=== PATIENT | male | born 2000 | race Caucasian/White ===

== ENCOUNTER 2024-04-19 15:05 | Emergency (ER) | payer OTHER, SELFPAY ==
[2024-04-19 15:06] VITALS: BP 149/99; PULSE 68; RESP 16; TEMP 35.9; O2SAT 97; BMI 42.4
--- NOTE | 2024-04-19 15:09 | EDS_ITS ---
HPI History of Present Illness Chief Complaint: Edema [facility] Medical History (Updated 04/19/24 @ 15:19 by Victoria Marshall) Hydradenitis Asthma Allergy/AdvReac Type Severity Reaction Status Date / Time No Known Allergies Allergy Verified 04/19/24 15:06 Social History Smoking Status: Current every day smoker tobacco type: smokeless tobacco EXAM Physical Exam Const Vital Signs: 04/19/24 15:06 04/19/24 15:23 Temperature 96.7 F L Temperature Source Temporal Pulse Rate 68 Respiratory Rate 16 Respiratory Effort Normal Non-Labored Respiratory Pattern Normal Blood Pressure 149/99 H Blood Pressure Mean 115 Pulse Ox 97 Oxygen Delivery Method Room Air MDM MDM MDM Narrative Medical decision making narrative: HISTORY OF PRESENT ILLNESS: 23-year-old male presents with bilateral lower extremity swelling and pain. He notes 3 weeks of lower extremity pain and swelling initially involving right ankle but over the last week it is also involved left ankle. Notes over the last 2 days she has had red dots on his lower extremities that progressed up towards his trunk. He denies fever, vomiting, diarrhea. Denies recent travel. Denies family or personal history of VTE. He denies neck stiffness headache sick contacts. 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 Denies chest pain or shortness of breath. Denies cough fever chills. Denies urinary complaints The patient denies recent surgery in the last 4 weeks or immobilization in the last 3 days, denies previous diagnosis of DVT or PE, hemoptysis, unilateral leg swelling or malignancy with treatment the last 6 months or palliative. No estrogen use noted. REVIEW OF SYSTEMS: Pertinent positives: Lower extremity swelling Pertinent negatives: Headache, neck symptoms, chest pain, shortness of PHYSICAL EXAM: Nursing triage notes reviewed, Vital signs reviewed Constitutional: please see mdm HENT: MMM Eyes: Pupils equal round and reactive to light, Extraocular muscles intact Neck: No stridor, no JVD, full neck ROM Lungs: Clear to auscultation, No wheezing or rales. No increased work of breathing, no conversational dyspnea, no accessory muscle use, no nasal flaring. No respiratory distress noted Heart: Regular rate and rhythm, No murmurs, No rubs and No gallops, 2+ distal pulses (radial, femoral, posterior tibial) in all extremities Abdomen: Soft, there is no tenderness, rigidity, rebound or guarding, no obvious peritoneal signs, no palpable pulsatile abdominal masses, no auscultated abdominal bruit : No CVAT Extremities: Trace edema noted to bilateral lower extremities, compartments are soft, no calf tenderness Neuro: No focal neurological deficits, cranial nerves II through XII intact, 5/5 strength in all extremities. Intact sensation to light touch in all extremities, 2+ reflexes bilateral patella tendons. Normal gait. No ataxia. Skin: Nonblanching, purpuric rash noted to bilateral lower extremities. No involvement of the trunk or upper extremities neck or face. MEDICAL DECISION MAKING: Chief Complaint: Leg swelling External records reviewed: Reviewed [facility] and clinic sync: X-ray of the right foot and ankle were performed on 04/13/2024. Showed no fracture or malalignment significant arthritis or other bony abnormality. Factors affecting care: ankle sprain MDM Narrative: Patient was hemodynamically stable, afebrile, nontoxic-appearing. Exam with purpuric rash on lower extremities only. I considered the following differential diagnosis: DVT, venous insufficiency, heart failure, liver failure, kidney failure, small vessel vasculitis I obtained a broad lab workup to further elucidate etiology of the patient's complaint. Specifically ruling out signs of renal abnormalities, proteinuria. The patient denies chest pain or shortness of breath, dyspnea on exertion, which makes heart failure less likely. The patient was on jaundice and not drink alcohol and has no stigmata of liver failure. 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 ALL IMAGES (IF OBTAINED) HAVE BEEN PERSONALLY REVIEWED AND INTERPRETED BY MYSELF. CBC without leukocytosis, severe anemia, no thrombocytopenia. BMP without evidence of significant electrolyte abnormalities, no anion gap, no acute kidney injury. LFTs show no evidence of hepatobiliary pathology. 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 The patient is already on prednisone and is also taking Humira secondary to hidradenitis suppurativa. This should resolve spontaneously. Will give rheumatology follow- up and strict return precautions. I did consider obtaining bilateral duplex ultrasounds however do not have also available on Sunday at 4:45 PM. I discussed giving prophylactic Lovenox and ordering outpatient DVT studies with the patient. We agreed that his risk for DVT is exceedingly low given low risk factor profile lack of calf tenderness and a more possible diagnosis of Henoch-Emiliano?nlein purpura. He decided to forego both anticoagulation and DVT studies at this time. The patient was alert and orient x 3 and had capacity to make his own medical decisions and chose to be discharged home. The patient and/or family, caregivers express understanding. The patient and/or family, caregivers agrees with the plan. Shared decision making: I will have a discussion with the patient and or visitors regarding risk/benefits of further testing or admission. They will be made aware of of the risk/benefits inherent in this decision they will be given the opportunity to voice understanding. Total critical care time today provided was at least 0 minutes. This excludes separately billable procedures. Critical care time (if documented) is secondary to the patient having high probability of clinically significant/life threatening deterioration in the patient's condition which required my urgent intervention. Impression: 1. Leg swelling 2. Arthralgias 3. 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 It may contain incorrect words, spelling, and punctuation that were not noted in review of the chart prior to signing. Lab Data Labs: Laboratory Results - last 24 hr 04/19/24 04/19/24 15:35 16:22 WBC 10.4 RBC 4.58 L Hgb 13.3 Hct 39.8 L MCV 86.9 MCH 29.0 MCHC 33.4 RDW Std Deviation 39.9 RDW Coeff of Ling 12.7 Plt Count 215 MPV 11.0 Immature Gran % (Auto) 0.300 Neut % (Auto) 45.2 L Lymph % (Auto) 43.7 H [place] % (Auto) 9.6 Eos % (Auto) 0.8 Baso % (Auto) 0.4 Absolute Neuts (auto) 4.7 Absolute Lymphs (auto) 4.53 H Nucleated RBC % 0 ESR 18 Sodium 139 Potassium 3.9 Chloride 107 Carbon Dioxide 26.0 Anion Gap 6 BUN 22 H Creatinine 1.11 Estim Creat Clear Calc 146.89 Est GFR (MDRD) Af Amer 105 Est GFR (MDRD) Non-Af 87 BUN/Creatinine Ratio 19.8 Glucose 88 Calcium 9.1 Total Bilirubin 0.50 Direct Bilirubin 0.18 AST 15 ALT 34 Alkaline Phosphatase 68 Lactate Dehydrogenase 151 C-React Prot Ext Range < 2.90 Total Protein 7.8 Albumin 3.6 Globulin 4.2 Urine Color Yellow Urine Clarity Sl. Cloudy Urine pH 6.0 Ur Specific [place] 1.020 Urine Protein 15 H Urine Glucose (UA) Normal Urine Ketones Negative Urine Occult Blood Negative Urine Nitrite Negative Urine Bilirubin Negative Urine Urobilinogen Normal Ur Leukocyte Esterase Negative Urine RBC 0 SEEN Urine WBC 0 SEEN Ur Squamous Epith Cells 0-5 SEEN Urine Bacteria RARE Urine Mucus 0 SEEN Discharge Plan Triage Chief Complaint: Edema ED Provider: Crispin Haskins Dx/Rx/DC Orders Instructions: ED Henoch-Schonlein Purpura Primary Care Provider: Care Physician,No Primary Referrals: Che Eaton MD [Med Staff - [employer]] - Activity Restrictions/Additional Instructions: Thank you for trusting us with your care today! Please take Tylenol (2 pills, 650 mg), ibuprofen (2 pills, 400 mg) every 6 hours as needed for pain and fever control. Please continue taking oral steroid as well as rate prescribed Humira. Please return to the emergency department if your symptoms change or worsen. Specifically to develop dark urine, severe pain, shortness of breath or chest pain or if you lose consciousness. Please follow with rheumatology (Dr. Eaton) For further outpatient evaluation and management. Print Language: Moldovan Disposition Disposition: Home, Self Care
[2024-04-19] MEDS: Ketorolac 15 MG/ML Vial IV (15:38)
[2024-04-19] MEDS: 0.9% Normal Saline (500mL Bag) 500 ML 999 ML IV (15:40)
[2024-04-19 15:45] LABS: Absolute Lymphocyte Count 4.53 X10^3/uL (0.83-4.51); Absolute Neutrophil Count 4.7 X10^3/uL (2.0-7.7); Basophil# 0.04 X10^3/uL; Basophil% 0.4 % (0-1); Eosinophil# 0.08 X10^3/uL; Eosinophils% 0.8 % (0-5); Hematocrit 39.8 % (40-54); Hemoglobin 13.3 g/dL (13.0-16.5); Lymphocyte # 4.53 X10^3/ul (0.83-4.51); Lymphocyte % 43.7 % (19-41); Mean Corp Hgb Conc 33.4 g/dL (32-36); Mean Corpuscular Volume 86.9 fL (80-94); Monocyte# 0.99 X10^3/uL; Monocyte% 9.6 % (0-10); NRBC Flagged by Analyzer 0 % (0-5); Neutrophil # 4.69 X10^3/uL (2.7-7.7); Neutrophil % 45.2 % (47-70); Platelet Count 215 K/mm3 (150-450); RBC Distribution Width CV 12.7 % (11.6-14.6); RBC Distribution Width SD 39.9 fl (35.1-43.9); Red Blood Count 4.58 M/mm3 (4.6-6.2); White Blood Count 10.4 K/mm3 (4.4-11.0)
[2024-04-19 15:56] LABS: Erythrocyte Sedimentation Rate 18 mm/hr (0-20)
[2024-04-19 16:10] LABS: AST(SGOT) 15 U/L (15-37); Alanine Aminotransfer ALT/SGPT 34 U/L (16-61); Albumin, Serum 3.6 g/dL (3.2-5.0); Alkaline Phosphatase 68 U/L (45-117); Anion Gap 6 (5-15); BUN 22 mg/dL (7-18); BUN/Creat Ratio 19.8 RATIO (10-20); Bilirubin, Direct 0.18 mg/dL (0.00-0.30); CRP < 2.90 mg/L (0.0-3.0); Calcium,Total 9.1 mg/dL (8.5-10.1); Chloride 107 mmol/L (98-107); Creatinine, Serum 1.11 mg/dL (0.70-1.30); EST Glomerular Filtration Rate 87 mL/min (>60); Est Glom Filt Rate - Afr Amer 105 mL/min (>60); Estimated Creatinine Clearance 146.89 ml/min; Globulin 4.2 g/dL (2.2-4.2); Glucose 88 mg/dL (74-106); LDH 151 U/L (87-241); Potassium 3.9 mmol/L (3.5-5.1); Protein, Total 7.8 g/dL (6.4-8.2); Sodium Level 139 mmol/L (136-145)
[2024-04-19 16:25] LABS: Mucous, Urine 0 SEEN /hpf (<or=2+); Red Blood Cells-Urine 0 SEEN /hpf (0-5); White Blood Cells 0 SEEN /hpf (0-5)
[2024-04-19 16:28] LABS: Color, Urine Yellow (Yellow); Glucose, Dipstick Normal (Normal); Ketone-Dipstick Negative (Negative); Leukocyte Esterase-Dipstick Negative /ul (Negative); Nitrite-Dipstick Negative (Negative); Occult Blood-Urine Negative /ul (Negative); Protein-Dipstick 15 mg/dl (Negative); Urine Bilirubin Dipstick Negative (Negative); Urine Clarity Sl. Cloudy (Clear); Urine Urobilinogen Normal (Normal)
[2024-04-19 16:38] LABS: Bacteria RARE /hpf (None Seen); Squamous Epithelial Cells - UA 0-5 SEEN /hpf (0-5)
[2024-04-19 16:53] VITALS: BP 114/63; PULSE 81; RESP 16; TEMP 36.6; O2SAT 97
[2024-04-22 05:07] LABS: Haptoglobin 229 mg/dL (17-317)
== END 2024-04-19 17:01 | disposition home or self-care (01) ==
PROVIDERS: Emergency Provider Emergency Medicine; Visit Provider Emergency Medicine
DX: M79.89 Other specified soft tissue disorders (principal); R21 Rash and other nonspecific skin eruption; F17.220 Nicotine dependence, chewing tobacco, uncomplicated
CPT/HCPCS: 80048; 80076; 81001; 83010; 83615; 85025; 85652; 86140; 96361; 96374; 99284; J7030; A4216

== ENCOUNTER → 2024-05-20 | Outpatient (CLI) | payer OTHER, SELFPAY ==
--- NOTE | 2024-05-20 14:46 | RAD_ITS ---
STUDY: X-RAY CHEST REASON FOR EXAM: Male, 23 years old. Pain. TECHNIQUE: Frontal and lateral views of the chest. COMPARISON: None. FINDINGS: The lungs are clear and expanded. There is no demonstrated pleural abnormality. Normal size heart. Normal mediastinum and barbara. Normal visualized pulmonary arteries. Normal visualized aortic arch and descending thoracic aorta. Normal visualized thoracic spine. Normal visualized ribs, clavicles, and shoulders. No abnormality of the visualized soft tissue structures of the upper abdomen. RAD/Chest PA and Lateral IMPRESSION: Normal x-ray examination of the chest. Electronically Signed: Grant Hein MD at 14:59 EDT ,
[2024-05-20 17:57] LABS: Color, Urine Yellow (Yellow); Glucose, Dipstick Normal (Normal); Ketone-Dipstick Negative (Negative); Leukocyte Esterase-Dipstick Negative /ul (Negative); Nitrite-Dipstick Negative (Negative); Occult Blood-Urine Negative /ul (Negative); Protein-Dipstick Negative (Negative); Specific Gravity, Urine 1.015 (1.002-1.030); Urine Bilirubin Dipstick Negative (Negative); Urine Clarity Clear (Clear); Urine Urobilinogen Normal (Normal)
[2024-05-20 17:58] LABS: Absolute Lymphocyte Count 2.04 X10^3/uL (0.83-4.51); Absolute Neutrophil Count 4.7 X10^3/uL (2.0-7.7); Basophil# 0.01 X10^3/uL; Basophil% 0.1 % (0-1); Eosinophil# 0.16 X10^3/uL; Eosinophils% 2.1 % (0-5); Erythrocyte Sedimentation Rate 32 mm/hr (0-20); Hemoglobin 12.6 g/dL (13.0-16.5); Lymphocyte # 2.04 X10^3/ul (0.83-4.51); Mean Corp Hgb Conc 33.2 g/dL (32-36); Mean Corpuscular Volume 87.6 fL (80-94); Mean Platelet Vol. 10.9 fl (6.2-12.0); Monocyte# 0.65 X10^3/uL; Monocyte% 8.6 % (0-10); NRBC Flagged by Analyzer 0 % (0-5); Neutrophil # 4.66 X10^3/uL (2.7-7.7); Neutrophil % 61.8 % (47-70); Platelet Count 270 K/mm3 (150-450); RBC Distribution Width CV 12.3 % (11.6-14.6); RBC Distribution Width SD 39.5 fl (35.1-43.9); Red Blood Count 4.34 M/mm3 (4.6-6.2); White Blood Count 7.6 K/mm3 (4.4-11.0)
[2024-05-20 18:19] LABS: Protein, Urine (Random) 11.2 mg/dL (<11.9); Protein:Creat Ratio 93 mg/g CRE (0-200)
[2024-05-20 18:29] LABS: ALB/GLOB Ratio 0.8 RATIO (0.9-2.4); AST(SGOT) 21 U/L (15-37); Alanine Aminotransfer ALT/SGPT 35 U/L (16-61); Albumin, Serum 3.7 g/dL (3.2-5.0); Alkaline Phosphatase 79 U/L (45-117); Anion Gap 5 (5-15); BUN 18 mg/dL (7-18); BUN/Creat Ratio 17.5 RATIO (10-20); CPK Total, Creatine Kinase 76 U/L (39-308); Calcium,Total 9.8 mg/dL (8.5-10.1); Chloride 107 mmol/L (98-107); Creatinine, Serum 1.03 mg/dL (0.70-1.30); EST Glomerular Filtration Rate 95 mL/min (>60); Est Glom Filt Rate - Afr Amer 115 mL/min (>60); Globulin 4.5 g/dL (2.2-4.2); Glucose 115 mg/dL (74-106); Potassium 3.9 mmol/L (3.5-5.1); Protein, Total 8.2 g/dL (6.4-8.2); Rheumatoid Factor < 10.0 IU/mL (<15); Sodium Level 139 mmol/L (136-145)
[2024-05-20 19:26] LABS: Hepatitis B Surface Antibody Non-Reactive; Hepatitis B Surface Antigen Non-Reactive (Nonreactive); Hepatitis C Antibody Non-Reactive (Nonreactive)
[2024-05-22 11:09] LABS: ANTINUCLEAR ANTIBODIES DIRECT Negative (Negative); Anti-Centromere B Ab <0.2 AI (0.0-0.9); Anti-Jo <0.2 AI (0.0-0.9); Anti-Scleroderma-70 AB <0.2 AI (0.0-0.9); Anti-dsDNA Ab 1 IU/mL (0-9); RNP Ab <0.2 AI (0.0-0.9); SJOGREN'S Anti-SS-A test < 0.2 AI (0.0-0.9); SJOGREN'S Anti-SS-B test < 0.2 AI (0.0-0.9); Smith Ab <0.2 AI (0.0-0.9)
[2024-05-26 13:08] LABS: Aldolase 4.4 U/L (3.3-10.3); CCP IgG Antibodies 24 units (0-19); Complement C3 182 mg/dL (82-167); Complement CH50 > 60 U/mL (>41)
== END | disposition home or self-care (01) ==
PROVIDERS: Referring Provider Internal Medicine Rheumatology; Visit Provider Internal Medicine Rheumatology
DX: R21 Rash and other nonspecific skin eruption (principal); R60.0 Localized edema; L73.2 Hidradenitis suppurativa; J45.909 Unspecified asthma, uncomplicated; R07.9 Chest pain, unspecified
CPT/HCPCS: 36415; 71046; 80053; 81002; 82085; 82550; 82570; 82595; 84156; 85025; 85652; 86038; 86140; 86160; 86162; 86200; 86225; 86235; 86431; 86706; 86803; 87340

== ENCOUNTER → 2024-06-23 | Outpatient (CLI) | payer OTHER, SELFPAY ==
[2024-06-23 12:06] LABS: Color, Urine Yellow (Yellow); Glucose, Dipstick Normal (Normal); Ketone-Dipstick Negative (Negative); Leukocyte Esterase-Dipstick Negative /ul (Negative); Nitrite-Dipstick Negative (Negative); Occult Blood-Urine Negative /ul (Negative); Protein-Dipstick 30 mg/dl (Negative); Specific Gravity, Urine 1.025 (1.002-1.030); Urine Bilirubin Dipstick Negative (Negative); Urine Clarity Clear (Clear); Urine Urobilinogen 1 mg/dl (Normal)
[2024-06-23 12:40] LABS: CRP < 2.90 mg/L (0.0-3.0); Protein:Creat Ratio 91 mg/g CRE (0-200)
[2024-06-23 12:48] LABS: Erythrocyte Sedimentation Rate 9 mm/hr (0-20)
[2024-06-25 21:07] LABS: QNTFERON TB Mitogen Value > 10.00 IU/mL (.); QNTFERON TB Nil Value 0.01 IU/mL (.); QNTFERON TB1+ Ag Value 0.02 IU/mL (.); QNTFERON TB2+ Ag Value 0.03 IU/mL (.); QNTIFERON TB Positive Criteria Negative (Negative)
== END | disposition home or self-care (01) ==
LOC: MTLAB 09:51
PROVIDERS: Referring Provider Internal Medicine Rheumatology; Visit Provider Internal Medicine Rheumatology
DX: M31.0 Hypersensitivity angiitis (principal); R60.0 Localized edema
CPT/HCPCS: 36415; 81002; 82570; 84156; 85652; 86140; 86480

== ENCOUNTER → 2024-07-08 | Outpatient (CLI) | payer OTHER, SELFPAY ==
[2024-07-08 12:20] LABS: Glucose, Dipstick Normal (Normal); Ketone-Dipstick Negative (Negative); Leukocyte Esterase-Dipstick Negative /ul (Negative); Nitrite-Dipstick Negative (Negative); Occult Blood-Urine Negative /ul (Negative); Protein-Dipstick 15 mg/dl (Negative); Urine Bilirubin Dipstick Negative (Negative); Urine Urobilinogen 1 mg/dl (Normal)
[2024-07-08 12:23] LABS: Color, Urine Yellow (Yellow); Urine Clarity Clear (Clear)
[2024-07-08 12:25] LABS: Erythrocyte Sedimentation Rate 7 mm/hr (0-20)
[2024-07-08 12:49] LABS: CRP < 2.90 mg/L (0.0-3.0)
[2024-07-08 13:31] LABS: Protein, Urine (Random) 27.2 mg/dL (<11.9); Protein:Creat Ratio 75 mg/g CRE (0-200)
== END | disposition home or self-care (01) ==
LOC: MTLAB 10:05
PROVIDERS: Referring Provider Internal Medicine Rheumatology; Visit Provider Internal Medicine Rheumatology
DX: M31.0 Hypersensitivity angiitis (principal); R60.0 Localized edema; L73.2 Hidradenitis suppurativa; J45.909 Unspecified asthma, uncomplicated
CPT/HCPCS: 36415; 81002; 82570; 84156; 85652; 86140

== ENCOUNTER → 2024-08-11 | Outpatient (CLI) | payer OTHER, SELFPAY ==
[2024-08-11 17:49] LABS: Erythrocyte Sedimentation Rate 10 mm/hr (0-20)
[2024-08-11 18:47] LABS: CRP 7.52 mg/L (0.0-3.0)
== END | disposition home or self-care (01) ==
PROVIDERS: Referring Provider Internal Medicine Rheumatology; Visit Provider Internal Medicine Rheumatology
DX: M31.0 Hypersensitivity angiitis (principal); R60.0 Localized edema
CPT/HCPCS: 36415; 85652; 86140

== ENCOUNTER → 2025-01-20 | Outpatient (CLI) | payer OTHER, SELFPAY ==
[2025-01-20 12:30] LABS: Erythrocyte Sedimentation Rate 15 mm/hr (0-20)
[2025-01-20 12:32] LABS: Absolute Lymphocyte Count 1.86 X10^3/uL (0.83-4.51); Absolute Neutrophil Count 2.6 X10^3/uL (2.0-7.7); Basophil# 0.03 X10^3/uL; Basophil% 0.5 % (0-1); Eosinophil# 0.31 X10^3/uL; Eosinophils% 5.5 % (0-5); Hematocrit 39.9 % (40-54); Hemoglobin 13.2 g/dL (13.0-16.5); Lymphocyte # 1.86 X10^3/ul (0.83-4.51); Lymphocyte % 32.9 % (19-41); Mean Corp Hgb Conc 33.1 g/dL (32-36); Mean Corpuscular Hgb 28.6 pg (27.0-32.0); Mean Corpuscular Volume 86.6 fL (80-94); Mean Platelet Vol. 11.6 fl (6.2-12.0); Monocyte# 0.83 X10^3/uL; Monocyte% 14.7 % (0-10); NRBC Flagged by Analyzer 0 % (0-5); Neutrophil # 2.62 X10^3/uL (2.7-7.7); Neutrophil % 46.4 % (47-70); Platelet Count 201 K/mm3 (150-450); RBC Distribution Width CV 12.8 % (11.6-14.6); RBC Distribution Width SD 39.8 fl (35.1-43.9); Red Blood Count 4.61 M/mm3 (4.6-6.2); White Blood Count 5.7 K/mm3 (4.4-11.0)
[2025-01-20 12:52] LABS: ALB/GLOB Ratio 1.2 RATIO (0.9-2.4); AST(SGOT) 30 U/L (<=37); Alanine Aminotransfer ALT/SGPT 33 U/L (<=46); Albumin, Serum 4.2 g/dL (3.5-5.0); Alkaline Phosphatase 86 U/L (40-129); Anion Gap 12 (5-15); BUN 14 mg/dL (4-19); BUN/Creat Ratio 14.3 RATIO (10-20); CRP 7.48 mg/L (0.0-3.0); Calcium,Total 9.7 mg/dL (7.6-11.0); Carbon Dioxide 24.8 mmol/L (21.0-32.0); Chloride 103 mmol/L (98-108); Creatinine, Serum 1.01 mg/dL (0.70-1.20); EST Glomerular Filtration Rate 107 (>60); Globulin 3.6 g/dL (2.2-4.2); Glucose 91 mg/dL (70-99); Protein, Total 7.7 g/dL (5.9-8.4); Sodium Level 139 mmol/L (133-145)
== END | disposition home or self-care (01) ==
LOC: MTLAB 09:27
PROVIDERS: Referring Provider Internal Medicine Rheumatology; Visit Provider Internal Medicine Rheumatology
DX: M31.0 Hypersensitivity angiitis (principal); R60.0 Localized edema; L73.2 Hidradenitis suppurativa; J45.909 Unspecified asthma, uncomplicated
CPT/HCPCS: 36415; 80053; 85025; 85652; 86140

== ENCOUNTER → 2025-02-19 | Outpatient (CLI) | payer OTHER, SELFPAY | END | disposition home or self-care (01) | LOC: MTLAB 10:12 | PROVIDERS: Referring Provider Dermatology; Visit Provider Dermatology | DX: L73.2 Hidradenitis suppurativa (principal) | CPT/HCPCS: 36415; 86480 ==

== ENCOUNTER → 2025-04-13 | Outpatient (CLI) | payer OTHER, SELFPAY ==
[2025-04-13 12:30] LABS: Hematocrit 37.7 % (40-54); Hemoglobin 12.1 g/dL (13.0-16.5); Immature Granulocytes Count 0.010 X10^3/uL (0.0-0.0); Mean Corp Hgb Conc 32.1 g/dL (32-36); Mean Corpuscular Volume 87.3 fL (80-94); Mean Platelet Vol. 11.9 fl (6.2-12.0); NRBC Flagged by Analyzer 0 % (0-5); Platelet Count 217 K/mm3 (150-450); RBC Distribution Width CV 12.9 % (11.6-14.6); RBC Distribution Width SD 40.8 fl (35.1-43.9); Red Blood Count 4.32 M/mm3 (4.6-6.2); White Blood Count 7.6 K/mm3 (4.4-11.0)
[2025-04-13 12:58] LABS: AST(SGOT) 17 U/L (<=37); Alanine Aminotransfer ALT/SGPT 16 U/L (<=46); Albumin, Serum 4.1 g/dL (3.5-5.0); Alkaline Phosphatase 76 U/L (40-129); Anion Gap 12 (5-15); BUN 14 mg/dL (4-19); BUN/Creat Ratio 12.4 RATIO (10-20); CRP 28.80 mg/L (0.0-3.0); Calcium,Total 9.7 mg/dL (7.6-11.0); Carbon Dioxide 24.5 mmol/L (21.0-32.0); Chloride 104 mmol/L (98-108); Globulin 3.7 g/dL (2.2-4.2); Glucose 93 mg/dL (70-99); Potassium 3.9 mmol/L (3.3-5.1)
== END | disposition home or self-care (01) ==
PROVIDERS: Referring Provider Internal Medicine Rheumatology; Visit Provider Internal Medicine Rheumatology
DX: M31.0 Hypersensitivity angiitis (principal); Z79.899 Other long term (current) drug therapy
CPT/HCPCS: 36415; 80053; 85025; 85652; 86140

== ENCOUNTER → 2025-07-13 | Outpatient (CLI) | payer OTHER, SELFPAY ==
[2025-07-13 15:03] LABS: Hematocrit 38.3 % (40-54); Hemoglobin 12.2 g/dL (13.0-16.5); Immature Granulocytes Count 0.010 X10^3/uL (0.0-0.0); Mean Corp Hgb Conc 31.9 g/dL (32-36); Mean Corpuscular Volume 86.1 fL (80-94); Mean Platelet Vol. 11.3 fl (6.2-12.0); NRBC Flagged by Analyzer 0 % (0-5); Platelet Count 243 K/mm3 (150-450); RBC Distribution Width CV 13.5 % (11.6-14.6); RBC Distribution Width SD 42.5 fl (35.1-43.9); Red Blood Count 4.45 M/mm3 (4.6-6.2); White Blood Count 7.2 K/mm3 (4.4-11.0)
[2025-07-13 15:34] LABS: AST(SGOT) 22 U/L (<=37); Alanine Aminotransfer ALT/SGPT 16 U/L (<=46); Albumin, Serum 4.3 g/dL (3.5-5.0); Alkaline Phosphatase 81 U/L (40-129); Anion Gap 11 (5-15); BUN 13 mg/dL (4-19); BUN/Creat Ratio 10.9 RATIO (10-20); CRP 9.05 mg/L (0.0-3.0); Calcium,Total 9.9 mg/dL (7.6-11.0); Carbon Dioxide 24.7 mmol/L (21.0-32.0); Chloride 103 mmol/L (98-108); Globulin 4.0 g/dL (2.2-4.2); Glucose 94 mg/dL (70-99); Potassium 4.3 mmol/L (3.3-5.1)
--- OUTSIDE RECORDS SUMMARY | 2025-07-13 16:30 | XMS RPT_ITS | CCD ---
Author Organization [facility] Care Team Providers Care New Account Interviewer Name Role Phone NO, PHYSICIAN Primary Care Unavailable ABDOULAYE PATEL Attending Unavailable NO, PHYSICIAN Primary Care Unavailable ALEJANDRINA COON Consulting Unavailab MARLA Renteria Attending Unavailable Mariano Madison MD Primary Care Provider Unavai lable Unavailable Primary Care Provider UnavailKLARISSA Aaron Attending Unavailable MARIANO MADSION Primary Care Unavailable Care Physician, No Primary Primary Care Provider Unavailable Angelito WETZEL, Dr. Bolton Attending Provider Angelito WETZEL, Dr. Bolton Referring Provider Gadiel WETZEL, Dr. Melvin Attending Provider Gadiel WETZEL, Dr. Melvin Referring Provider Care Physician, No Primary Referring Provider Un available Abilio Cole Attending Provider Care Physician, No Primary Primary Care Unava ilable Vellanmarla, Che Attending Unavailable Che Eaton Referring Unavailable Care Physician, No Primary Primary Care Unava ilable Thomlanki, Che Referring Unavailable Che Eaton Attending Unavailable Abilio Cole Attending Unavailable Care Physician, No Primary Referring Unava ilable Care Physician, No Primary Primary Care Unava ilable Care Physician, No Primary Primary Care Unava ilable Olegario Ramesh Attending Unavailable Olegario Ramesh Referring Unavailable Care Physician, No Primary Primary Care Unava ilable Vellanki, Che Referring Unavailable Che Eaton Attending Unavailable Care Physician, No Primary Primary Care Unava ilable Vellanki, Che Referring Unavailable Vellanmarla, Che Attending Unavailable Care Physician, No Primary Primary Care Unava ilable Vellanki, Che Attending Unavailable Vellanki, Che Referring Unavailable Vellanki, Che Attending Unavailable Care Physician, No Primary Primary Care Unava ilable Vellanki, Che Referring Unavailable Allergies Allergy Classification Reported Allergen(s) Allergy Type Date of Onset Reaction(s) Facility (2 sources) Contrast media; Translations: [RED DYE] Propensity to adverse reactions to drug (disorder) 1 [facility] Medications Current Medications Medication Drug Class(es) Dates Sig (Normalized) Sig (Original) 0.1 ml adalimumab 100 mg/ml prefilled syringe (1 source) Tumor Necrosis Factor Nato Humira, 2 Syringe, 10 MG/0.1ML Prefilled Syringe Kit Inject under the skin. Active Bimekizumab-Bkzx (2 sources) Start: 04-13-2025 Bimekizumab-Bkzx (Bimzelx) 160 mg/mL syringe Active 160 mg SC every 4 weeks April 13, 2025 12:00am doxycycline hyclate 150 mg oral tablet (2 sources) Tetracycline-clas s Drug Start: 04-13-2025 take 1 tablet by mouth twice daily Doxycycline Hyclate 150 mg tablet Active 150 mg PO TWICE A DAY April 13, 2025 12:00am predniSONE 20 mg oral tablet (2 sources) Start: 04-13-2024 End: 04-18-2024 take 2 tablets by mouth once daily predniSONE 20 MG tablet Take 2 tablets by mouth daily for 5 days. 10 tablet 04/13/2024 04/18/2024 Active Completed/Discontinued Medications Medication Drug Class(es) Dates Sig (Normalized) Sig (Original) acetaminophen 325 mg oral tablet (1 source) Start: 04-13-2024 End: 04-13-2024 take 1 dose by mouth once 975 mg, Oral, ONCE, 1 dose, On 04/13/24 at 1515 ibuprofen 400 mg oral tablet (1 source) Nonsteroidal Anti-inflammatory Drug Start: 04-13-2024 End: 04-13-2024 take 1 dose by mouth once at mealtime 800 mg, Oral, ONCE, 1 dose, On 04/13/24 at 1515, Give with food Problems Active Problems Problem Classification Problem Date Documented Date Episodic/Chronic Attention-deficit, conduct, and disruptive behavior disorders (1 source) Attention deficit hyperactivity disorder; Translations: [Attention-deficit hyperactivity disorder, unspecified type] 04-22-2018 Chronic Coagulation and hemorrhagic disorders (1 source) Petechiae of skin; Translations: [Spontaneous ecchymoses] 04-19-2024 Episodic Other circulatory disease (1 source) Hypersensitivity angiitis; 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 Other connective tissue disease (1 source) Pain in right foot; Translations: [Pain in right foot] 04-13-2024 Episodic Other connective tissue disease (2 sources) Pain in right foot; Translations: [Pain in right foot] Onset: 04-13-2024 Episodic Other non-traumatic joint disorders (1 source) Swollen ankle region; Translations: [Effusion, right ankle] 04-13-2024 Episodic Other non-traumatic joint disorders (2 sources) Effusion, right ankle; Translations: [Effusion, right ankle] Onset: 04-13-2024 Episodic Other skin disorders (3 sources) Hidradenitis suppurativa; Translations: [Hidradenitis suppurativa] Onset: 07-09-2023 Episodic Other upper respiratory infections (1 source) Acute pharyngitis, unspecified; Translations: [Acute pharyngitis, unspecified] Onset: 04-13-2025 Episodic Sprains and strains (3 sources) Sprain of right ankle; Translations: [Sprain of unspecified ligament of right ankle, initial encounter] Onset: 04-13-2024 04-13-2024 Episodic Past or Other Problems Problem Classification Problem Date Documented Da te Episodic/Chronic Nonspecific chest pain (2 sources) Other chest pain; Translations: [Other chest pain] Onset: 01-14-2023 Episodic Other skin disorders (1 source) Rash and other nonspecific skin eruption; Translations: [Rash and other nonspecific skin eruption] Onset: 06-11-2024 Episodic Skin and subcutaneous tissue infections (2 sources) Cutaneous abscess of chest wall; Translations: [Cutaneous abscess of chest wall] Onset: 01-14-2023 Episodic Results Test Name Value Interpretation Reference Range Facility Absolute lymphocyte countOrd ered By: Che Eaton on 04-13-2025 Lymphocytes Auto (Unsp spec) [#/Vol] 1.49 10*3/uL 0.83-4.51 [facility] Absolute neutrophil countOrd ered By: Che Eaton on 04-13-2025 Neutrophils (Bld) [#/Vol] 4.7 10*3/uL 2.0-7.7 [facility] Anion gap in Serum or Plasma Ordered By: Che Eaton on 04-13-2025 Anion gap [Moles/Vol] 12 mmol/L 5-[address] [facility] Automated lymphocyte count a s percentage of total leukocytesOrdered By: Che Eaton on 04-13-2025 Lymphocytes/100 WBC Auto (Unsp spec) 19.7 % 19-41 [facility] BUN/creatinine ratioOrdered By: Che Eaton on 04-13-2025 Urea nitrogen/Creatinine [Mass ratio] 12.4 mg/mg 10-20 [facility] Basophil percentageOrdered B y: Che Eaton on 04-13-2025 Basophils/100 WBC (Bld) 0.3 % 0-1 [facility] Bilirubin, totalOrdered By: Che Eaton on 04-13-2025 Bilirubin [Mass/Vol] 0.49 mg/dL 0.00-1.30 [facility] CBC W/Diff, Automatedon 03-27 Absolute Lymph 1.49 X10 3/uL Normal 0.83-4.51 [facility] Comment on above: Performed By: #### L 500.4050, L101.9900, L501.6710, L100.0100 #### [facility] [address] [place], [address] Absolute Neut 4.7 X10 3/uL Normal 2.0-7.7 [facility] Comment on above: Performed By: #### L 500.4050, L101.9900, L501.6710, L100.0100 #### [facility] [address] [place], [address] Basophils/100 WBC (Bld) 0.3 % Normal 0-1 [facility] Comment on above: Performed By: #### L 500.4050, L101.9900, L501.6710, L100.0100 #### [facility] [address] [place], [address] Eosinophils/100 WBC (Bld) 3.8 % Normal 0-5 [facility] Comment on above: Performed By: #### L 500.4050, L101.9900, L501.6710, L100.0100 #### [facility] [address] [place], [address] Erythrocyte distribution width (RBC) [Ratio] 12.9 % Normal 11.6-14.6 [facility] Comment on above: Performed By: #### L 500.4050, L101.9900, L501.6710, L100.0100 #### [facility] [address] [place], [address] Hematocrit (Bld) [Volume fraction] 37.7 % Low 40-54 [facility] Comment on above: Performed By: #### L 500.4050, L101.9900, L501.6710, L100.0100 #### [facility] [address] [place], [address] Hemoglobin (Bld) [Mass/Vol] 12.1 g/dL Low 13.0-16.5 [facility] Comment on above: Performed By: #### L 500.4050, L101.9900, L501.6710, L100.0100 #### [facility] [address] [place], [address] IG% 0.100 Normal 0.0-0.9 [facility] Comment on above: Result Comment: IG% - Immature Granulocytes (promyelocytes, myelocytes and metamyelocytes) > 1% indicates that a LEFT SHIFT is Present. Performed By: #### L 500.4050, L101.9900, L501.6710, L100.0100 #### [facility] [address] [place], [address] Lymphocytes/100 WBC (Bld) 19.7 % Normal 19-41 [facility] Comment on above: Performed By: #### L 500.4050, L101.9900, L501.6710, L100.0100 #### [facility] [address] [place], [address] MCH (RBC) [Entitic mass] 28.0 pg Normal 27.0-32.0 [facility] Comment on above: Performed By: #### L 500.4050, L101.9900, L501.6710, L100.0100 #### [facility] [address] [place], [address] MCHC (RBC) [Mass/Vol] 32.1 g/dL Normal 32-[address] [facility] Comment on above: Performed By: #### L 500.4050, L101.9900, L501.6710, L100.0100 #### [facility] [address] [place], [address] MCV (RBC) [Entitic vol] 87.3 fL Normal 80-94 [facility] Comment on above: Performed By: #### L 500.4050, L101.9900, L501.6710, L100.0100 #### [facility] [address] [place], [address] Monocytes/100 WBC (Bld) 13.7 % High 0-10 [facility] Comment on above: Performed By: #### L 500.4050, L101.9900, L501.6710, L100.0100 #### [facility] [address] [place], [address] Neutrophils/100 WBC (Bld) 62.4 % Normal 47-70 [facility] Comment on above: Performed By: #### L 500.4050, L101.9900, L501.6710, L100.0100 #### [facility] [address] [place], [address] Nucleated RBC (Bld) [#/Vol] 0 10*3/uL Normal 0-5 [facility] Comment on above: Performed By: #### L 500.4050, L101.9900, L501.6710, L100.0100 #### [facility] [address] [place], [address] Platelet mean volume (Bld) [Entitic vol] 11.9 fL Normal 6.2-12.0 [facility] Comment on above: Performed By: #### L 500.4050, L101.9900, L501.6710, L100.0100 #### [facility] [address] [place], [address] Platelets (Bld) [#/Vol] 217 10*3/uL Normal 150-450 [facility] Comment on above: Performed By: #### L 500.4050, L101.9900, L501.6710, L100.0100 #### [facility] [address] [place], [address] RBC (Bld) [#/Vol] 4.32 10*6/uL Low 4.6-6.2 [facility] Comment on above: Performed By: #### L 500.4050, L101.9900, L501.6710, L100.0100 #### [facility] [address] [place], [address] RDW SD 40.8 fl Normal 35.1-43.9 [facility] Comment on above: Performed By: #### L 500.4050, L101.9900, L501.6710, L100.0100 #### [facility] [address] [place], [address] WBC (Bld) [#/Vol] 7.6 10*3/uL Normal 4.4-11.0 [facility] Comment on above: Performed By: #### L 500.4050, L101.9900, L501.6710, L100.0100 #### [facility] [address] [place], [address] CRPon 04-13-2025 C-REACTIVE PROT 28.80 mg/L High 0.0-3.0 [facility] Comment on above: Performed By: #### L 500.4050, L101.9900, L501.6710, L100.0100 #### [facility] [address] [place], [address] Carbon dioxide, total [Moles /volume] in Central venous bloodOrdered By: Che Eaton on 04-13-2025 CO2 [Moles/Vol] 24.5 mmol/L 21.0-32.0 [facility] Chloride assayOrdered By: Reese Eaton on 04-13-2025 Chloride [Moles/Vol] 104 mmol/L 98-108 [facility] Comprehensive Metabolic Prof ilon 04-13-2025 Albumin [Mass/Vol] 4.1 g/dL Normal 3.5-5.0 [facility] Comment on above: Performed By: #### L 500.4050, L101.9900, L501.6710, L100.0100 #### [facility] [address] [place], [address] Albumin/Globulin [Mass ratio] 1.1 {ratio} Normal 0.9-2.4 [facility] Comment on above: Performed By: #### L 500.4050, L101.9900, L501.6710, L100.0100 #### [facility] [address] [place], [address] ALK PHOS 76 U/L Normal 40-129 [facility] Comment on above: Performed By: #### L 500.4050, L101.9900, L501.6710, L100.0100 #### [facility] [address] [place], [address] ALT [Catalytic activity/Vol] 16 U/L Normal <=46 [facility] Comment on above: Performed By: #### L 500.4050, L101.9900, L501.6710, L100.0100 #### [facility] [address] [place], [address] AST [Catalytic activity/Vol] 17 U/L Normal <=37 [facility] Comment on above: Performed By: #### L 500.4050, L101.9900, L501.6710, L100.0100 #### [facility] [address] [place], [address] Bilirubin [Mass/Vol] 0.49 mg/dL Normal 0.00-1.30 [facility] Comment on above: Performed By: #### L 500.4050, L101.9900, L501.6710, L100.0100 #### [facility] [address] [place], [address] BUN/CRE 12.4 RATIO Normal 10-20 [facility] Comment on above: Performed By: #### L 500.4050, L101.9900, L501.6710, L100.0100 #### [facility] [address] [place], [address] Calcium [Mass/Vol] 9.7 mg/dL Normal 7.6-11.0 [facility] Comment on above: Performed By: #### L 500.4050, L101.9900, L501.6710, L100.0100 #### [facility] [address] [place], [address] Chloride [Moles/Vol] 104 mmol/L Normal 98-108 [facility] Comment on above: Performed By: #### L 500.4050, L101.9900, L501.6710, L100.0100 #### [facility] [address] [place], [address] CO2 [Moles/Vol] 24.5 mmol/L Normal 21.0-32.0 [facility] Comment on above: Performed By: #### L 500.4050, L101.9900, L501.6710, L100.0100 #### [facility] [address] [place], [address] Creatinine [Mass/Vol] 1.09 mg/dL Normal 0.70-1.[address] [facility] Comment on above: Performed By: #### L 500.4050, L101.9900, L501.6710, L100.0100 #### [facility] [address] [place], [address] GAP 12 Normal 5-15 [facility] Comment on above: Performed By: #### L 500.4050, L101.9900, L501.6710, L100.0100 #### [facility] [address] [place], [address] GFR/1.73 sq M.predicted among non-blacks MDRD (S/P/Bld) [Vol rate/Area] 97 mL/min/{1.73_m2} Normal >60 [facility] Comment on above: Result Comment: mL/m in/1.73m2 CKD-EPI Creatinine Equation (2020) Performed By: #### L 500.4050, L101.9900, L501.6710, L100.0100 #### [facility] [address] [place], [address] Globulin (S) [Mass/Vol] 3.7 g/dL Normal 2.2-4.2 [facility] Comment on above: Performed By: #### L 500.4050, L101.9900, L501.6710, L100.0100 #### [facility] [address] [place], [address] Glucose [Mass/Vol] 93 mg/dL Normal 70-99 [facility] Comment on above: Performed By: #### L 500.4050, L101.9900, L501.6710, L100.0100 #### [facility] [address] [place], [address] Potassium [Moles/Vol] 3.9 mmol/L Normal 3.3-5.[address] [facility] Comment on above: Performed By: #### L 500.4050, L101.9900, L501.6710, L100.0100 #### [facility] [address] [place], [address] Sodium [Moles/Vol] 140 mmol/L Normal 133-145 [facility] Comment on above: Performed By: #### L 500.4050, L101.9900, L501.6710, L100.0100 #### [facility] [address] [place], [address] T PROT 7.7 g/dL Normal 5.9-8.4 [facility] Comment on above: Performed By: #### L 500.4050, L101.9900, L501.6710, L100.0100 #### [facility] [address] [place], [address] Urea nitrogen [Mass/Vol] 14 mg/dL Normal 4-19 [facility] Comment on above: Performed By: #### L 500.4050, L101.9900, L501.6710, L100.0100 #### [facility] [address] [place], [address] Eosinophil percentageOrdered By: Che Eaton on 04-13-2025 Eosinophils/100 WBC (Bld) 3.8 % 0-5 [facility] Erythrocyte Sed Rateon 04-13 SED RATE 23 mm/hr High 0-20 [facility] Comment on above: Performed By: #### L 500.4050, L101.9900, L501.6710, L100.0100 #### [facility] [address] [place], [address] Erythrocyte distribution wid th ratioOrdered By: Che Eaton on 04-13-2025 Erythrocyte distribution width (RBC) [Ratio] 12.9 % 11.6-14.6 [facility] Erythrocyte distribution wid th standard deviationOrdered By: Che Eaton on 04-13-2025 Erythrocyte distribution width (RBC) [Ratio] 40.8 fl 35.1-43.9 [facility] Erythrocyte sedimentation ra teOrdered By: Che Eaton on 04-13-2025 ESR (Bld) [Velocity] 23 mm/h High 0-20 [facility] Glomerular filtration rate ( GFR) estimation/1.73 sq m using serum, plasma, or whole bOrdered By: Che Eaton on 04-13-2025 GFR/1.73 sq M.predicted among non-blacks MDRD (S/P/Bld) [Vol rate/Area] 97 mL/min/{1.73_m2} >60 [facility] Comment on above: mL/min/1.73m2 CKD-EP I Creatinine Equation (2020) Hematocrit Auto (Bld) [Volum e fraction]Ordered By: Che Eaton on 04-13-2025 Hematocrit (Bld) [Volume fraction] 37.7 % Low 40-54 [facility] Hemoglobin measurementOrdere d By: Che Eaton on 04-13-2025 Hemoglobin (Bld) [Mass/Vol] 12.1 g/dL Low 13.0-16.5 [facility] Immature granulocytes/100 WB C Auto (Bld)Ordered By: Che Eaton on 04-13-2025 Immature granulocytes/100 WBC (Bld) 0.100 % 0.0-0.9 [facility] Comment on above: IG% - Immature Granu locytes (promyelocytes, myelocytes and metamyelocytes) > 1% indicates that a LEFT SHIFT is Present. Laboratory - Chemistry and C hemistry - challengeOrdered By: Che Eaton on 04-13-2025 AST [Catalytic activity/Vol] 17 U/L <38 [facility] MCV (mean corpuscular volume ) determinationOrdered By: Che Eaton 5 MCV (RBC) [Entitic vol] 87.3 fL 80-94 [facility] Mean corpuscular hemoglobin (MCH) determinationOrdered By: Che Eaton on 04-13-2025 MCH (RBC) [Entitic mass] 28.0 pg 27.0-32.0 [facility] Mean corpuscular hemoglobin concentration (MCHC) determinationOrdered By: Che Eaton on 04-13-2025 MCHC (RBC) [Mass/Vol] 32.1 g/dL 32-[address] [facility] Mean platelet volume determi nationOrdered By: Che Eaton on 04-13-2025 Platelet mean volume (Bld) [Entitic vol] 11.9 fL 6.2-12.0 [facility] Monocyte percentageOrdered B y: Che Eaton on 04-13-2025 Monocytes/100 WBC (Bld) 13.7 % High 0-10 [facility] Neutrophil percentageOrdered By: Che Eaton on 04-13-2025 Neutrophils/100 WBC (Bld) 62.4 % 47-70 [facility] Nucleated red blood cell per centageOrdered By: Che Eaton on 04-13-2025 Nucleated RBC/100 WBC (Bld) [Ratio] 0 % 0-5 [facility] Platelet countOrdered By: Reese Eaton on 04-13-2025 Platelets (Bld) [#/Vol] 217 10*3/uL 150-450 [facility] Potassium measurement (mass/ volume)Ordered By: Che Eaton on 04-13-2025 Potassium (Unsp spec) [Mass/Vol] 3.9 mmol/L 3.3-5.1 [facility] RBC Auto (Bld) [#/Vol]Ordere d By: Che Eaton on 04-13-2025 RBC (Bld) [#/Vol] 4.32 10*6/uL Low 4.6-6.2 [facility] Rapid group A Streptococcus antigen assay at point of careOrdered By: Abilio Chairez on 04-13-2025 S. pyogenes Ag IA.rapid Ql (Throat) Negative [facility] Serum creatinine measurement (mass/volume)Ordered By: Che Eaton on 04-13-2025 Creatinine [Mass/Vol] 1.09 mg/dL 0.70-1.[address] [facility] Serum globulin measurementOr dered By: Che Eaton on 04-13-2025 Globulin (S) [Mass/Vol] 3.7 g/dL 2.2-4.2 [facility] Serum glucose measurement (m ass/volume)Ordered By: Che Eaton on 04-13-2025 Glucose [Mass/Vol] 93 mg/dL 70-99 [facility] Serum or plasma C reactive p rotein measurement (mass/volume)Ordered By: Che Eaton on 04-13-2025 CRP [Mass/Vol] 28.80 mg/L High 0.0-3.0 [facility] Serum or plasma alanine larios otransferase (ALT) measurementOrdered By: Che Eaton on 04-13-2025 ALT [Catalytic activity/Vol] 16 U/L <47 [facility] Serum or plasma albumin katie urement (mass/volume)Ordered By: Che Eaton on 04-13-2025 Albumin [Mass/Vol] 4.1 g/dL 3.5-5.0 [facility] Serum or plasma albumin/glob ulin mass ratioOrdered By: Che Eaton on 04-13-2025 Albumin/Globulin [Mass ratio] 1.1 {ratio} 0.9-2.4 [facility] Serum or plasma alkaline althea sphatase measurementOrdered By: Che Eaton on 04-13-2025 ALP [Catalytic activity/Vol] 76 U/L 40-129 [facility] Serum or plasma calcium katie urement (mass/volume)Ordered By: Che Eaton on 04-13-2025 Calcium [Mass/Vol] 9.7 mg/dL 7.6-11.0 [facility] Serum or plasma urea nitroge n measurement (mass/volume)Ordered By: Che Eaton on 04-13-2025 Urea nitrogen [Mass/Vol] 14 mg/dL 4-19 [facility] Sodium levelOrdered By: Redd Eaton on 04-13-2025 Sodium [Moles/Vol] 140 mmol/L 133-145 [facility] Total proteinOrdered By: Caprice Eaton on 04-13-2025 Protein [Mass/Vol] 7.7 g/dL 5.9-8.4 [facility] Urgent Care Visit Reporton 0 04-13-2025 Urgent Care Visit Report [facility] [address] , [address] [place] [address] OFFICE VISIT Date of Service: 04/13/25 MR#: [id number] Acct: [id number] Name: JINNY COLLINS Rep #: [id number] : 2000 Provider: REESE Arias Age/Sex: 24/M Location: [facility] Status: Signed with Addenda ADDENDUM by REESE Arias on 04/13/25 at 1042 HPI Details: REVISED DX: Acute pharyngitis J02.9 * Assessment and Plan Assessment and Plan Orders: Orders POC Miranda Rapid Strep A Today J02.9 - Acute pharyngitis, unspecified 04/13/25 1042 Date Abilio Chairez cc: * Signed Intake Vital Signs 04/19/24 15:06 04/13/25 09:50 Height 5 ft 11 in 5 ft 11 in Weight: 285 lb BMI 39.7 BP 130/80 H Blood Pressure Location Lt brachial Position Sitting Pulse 84 Pulse Source Monitor Temp 98.6 F Temp Source Oral Pulse Oximetry (%) 98 Oxygen Delivery Method room air Intake Visit Reasons: SORE THROAT Chief Complaint: Sore Throat Accompanied by: Self Allergies No Known Allergies Allergy (Verified 04/13/25 09:48) Medications ???Medication ???Instructions ???Recorded ???Confirmed ???Type bimekizumab-bkzx 160 mg/mL 160 mg subcut Q4W 08/18/25 08/18/2 5 History subcutaneous syringe (Bimzelx) doxycycline hyclate 150 mg tablet 150 mg PO BID 04/13/25 04/13/25 H istory Nurse's Note: Sore throat, hard to swallow, left tonsil feels very swollen. X 2 days. [facility] Medical History (Updated 04/19/24 @ 15:19 by Victoria Marshall) Hydradenitis Asthma Social History Smoking Status: Current every day smoker tobacco type: smokeless tobacco HPI HPI Chief Complaint: Sore Throat Details: JINNY COLLINS, is a 24 M who presents to the office today for initial evaluation at the [facility] for approximately 2-day history of progressively worsening sore throat with swollen tender cervical lymph nodes in front of neck (L>R), no cough, no fever. Painful swallowing appreciated though no difficulty swallowing/drooling. No rash. No complaints of chest pressure/shortness of breath/dyspnea on exertion. 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 ???No rixb-chk-yiknsip products taken to assist. No other associated symptoms and no other alleviating/aggravating factors. ROS Const Constitutional: No other (As above) Exam Const General: cooperative, healthy appearing and no acute distress Orientation: alert, awake and oriented x3 HENMT Head: normal to inspection Ears: hearing grossly normal bilaterally, external ears normal, TM's normal bilaterally and EAC's normal Nose: external nose normal, nares normal, septum normal and no nasal discharge Face and sinus: normal facial exam, sinuses nontender and face symmetric Mouth: oral mucosae normal, lip normal, tongue normal and oropharynx normal Throat: posterior oropharynx normal, uvula midline, abnormal tonsil bilaterally erythema w/ exudates and +1 hypertrophy, and no postnasal drainage Eyes General: appearance normal, both eyes and all related structures Neck Neck: normal visual inspection, full ROM, no meningeal signs, supple and lymphadenopathy (Bilateral anterior cervical lymph node swelling/nontender to palpation) Neck mass: No Thyroid: thyroid normal Chest Chest palpation inspection: normal inspection of the chest Resp Effort Inspection: normal respiratory effort and able to speak in complete sentences Auscultation: Bilateral: Clear to Auscultation Cardio Palpation: normal PMI Rate: regular rate Rhythm: regular rhythm Heart Sounds: S1 normal, S2 normal, no gallops, no murmurs and no rubs Pulses: radial pulses present Skin General: no rashes or lesions noted Neuro General: patient alert, patient awake and patient oriented x3 Cognition: normal cognition Speech: speech normal Psych Appearance: grossly normal Mental Status: mental status grossly normal Mood: congruent mood Affect: normal affect Speech and Movement: speech and movement normal Attitude: cooperative Diagnoses Acute streptococcal pharyngitis J02.0 Assessment and Plan Assessment and Plan (1) Acute streptococcal pharyngitis: Status: Acute Plan: See POC results for streptococcal pharyngitis and Monospot test (both negative). Supportive measures as instructed today. Work excuse offered/declined. Follow-up with PCP in 5-7 days should symptoms not improve, ED sooner should symptoms worsen or any other concerns develop. Patient states acknowledging understanding all the above. Results POC Miranda Rapid Strep POC Miranda Rapid Strep Negative Last Edit by Liseth Rdz MA on 04/13/25 10:11 Coding Level of Ca (more content not included)... Normal [facility] White blood cell (WBC) count Ordered By: Che Eaton on 04-13-2025 WBC (Bld) [#/Vol] 7.6 10*3/uL 4.4-11.0 [facility] Quantiferon TB-Gold+on 03-02 QFT MITOGEN DANIELE > 10.00 Normal . [facility] Comment on above: Order Comment: CLEAN CATCH Performed By: #### L 501.6710, L501.0900, L3400.8000, L400.2010, L101.9900 #### [facility] [address] [place], [address] QFT NIL VALUE 0.01 IU/mL Normal . [facility] Comment on above: Order Comment: CLEAN CATCH Performed By: #### L 501.6710, L501.0900, L3400.8000, L400.2010, L101.9900 #### [facility] [address] [place], [address] QFT TB GOLD+ Comment Normal . [facility] Comment on above: Order Comment: CLEAN CATCH Result Comment: Sandip tiFERON-TB Gold Plus is a qualitative indirect test for M tuberculosis infection (including disease) and is intended for use in conjunction with risk assessment, radiography, and other medical and diagnostic evaluations. The QuantiFERON-TB Gold Plus result is determined by subtracting the Nil value from either TB antigen (Ag) value. The Mitogen tube serves as a control for the test. Performed By: #### L 501.6710, L501.0900, L3400.8000, L400.2010, L101.9900 #### [facility] [address] [place], [place], [id number] QFT TB POS CRIT Negative Normal Negative [facility] Comment on above: Order Comment: CLEAN CATCH Result Comment: No r esponse to M tuberculosis antigens detected. Infection with M tuberculosis is unlikely, but high risk individuals should be considered for additional testing (ATS/IDSA/CDC Clinical Practice Guidelines, 2017). The reference range is an Antigen minus Nil result of <0.35 IU/mL. The specimen received for QuantiFERON testing was incubated by the ordering institution. Specific procedures outlined in our Directory of Services and in the package insert for the QuantiFERON Gold (In Tube) test must be followed to enable for proper stimulation of cells for the production of interferon gamma. Chemiluminescence immunoassay methodology Performed at: [email or web address] [id number] Middleware Systems Architect: Eric Stover PhD, Phone: [phone] Performed By: #### L 501.6710, L501.0900, L3400.8000, L400.2010, L101.9900 #### [facility] [address] [place], [place], [id number] QFT TB1+ AG DANIELE 0.03 IU/mL Normal . [facility] Comment on above: Order Comment: CLEAN CATCH Performed By: #### L 501.6710, L501.0900, L3400.8000, L400.2010, L101.9900 #### [facility] [address] [place], [place], [address] QFT TB2+ AG DANIELE 0.02 IU/mL Normal . [facility] Comment on above: Order Comment: CLEAN CATCH Performed By: #### L 501.6710, L501.0900, L3400.8000, L400.2011, L101.9900 #### [facility] [address] [place], [address] Qualitative QuantiFERON-TB g old in tube testOrdered By: Olegario Ramesh on 02-19-2025 M. tuberculosis tuberculin stim IFN-g Ql (Bld) 0.03 IU/mL . [facility] Absolute lymphocyte countOrd ered By: Checrystal Eaton on 01-20-2025 Lymphocytes Auto (Unsp spec) [#/Vol] 1.86 10*3/uL 0.83-4.51 [facility] Absolute neutrophil countOrd ered By: [facility] on 01-20-2025 Neutrophils (Bld) [#/Vol] 2.6 10*3/uL 2.0-7.7 [facility] Anion gap in Serum or Plasma Ordered By: Che Eaton on 01-20-2025 Anion gap [Moles/Vol] 12 mmol/L 5- [facility] Automated lymphocyte count a s percentage of total leukocytesOrdered By: [facility] Angelito on 01-20-2025 Lymphocytes/100 WBC Auto (Unsp spec) 32.9 % - [facility] BUN/creatinine ratioOrdered By: [facility] on 01-20-2025 Urea nitrogen/Creatinine [Mass ratio] 14.3 mg/mg 10-20 [facility] Basophil percentageOrdered B y: Che Eaton on 01-20-2025 Basophils/100 WBC (Bld) 0.5 % 0-1 [facility] Bilirubin, totalOrdered By: [facility] Angelito on 01-20-2025 Bilirubin [Mass/Vol] 0.40 mg/dL 0.00-1.30 [facility] CBC W/Diff, Automatedon 12-26 Absolute Lymph 1.86 X10 3/uL Normal 0.83-4.51 [facility] Comment on above: Performed By: #### L 500.4050, L101.9900, L501.6710, L100.0100 #### [facility] [address] [place], [address] Absolute Neut 2.6 X10 3/uL Normal 2.0-7.7 [facility] Comment on above: Performed By: #### L 500.4050, L101.9900, L501.6710, L100.0100 #### [facility] [address] [place], [address] Basophils/100 WBC (Bld) 0.5 % Normal 0-1 [facility] Comment on above: Performed By: #### L 500.4050, L101.9900, L501.6710, L100.0100 #### [facility] [address] [place], [address] Eosinophils/100 WBC (Bld) 5.5 % High 0-5 [facility] Comment on above: Performed By: #### L 500.4050, L101.9900, L501.6710, L100.0100 #### [facility] [address] [place], [address] Erythrocyte distribution width (RBC) [Ratio] 12.8 % Normal 11.6-14.6 [facility] Comment on above: Performed By: #### L 500.4050, L101.9900, L501.6710, L100.0100 #### [facility] [address] [place], [address] Hematocrit (Bld) [Volume fraction] 39.9 % Low 40-54 [facility] Comment on above: Performed By: #### L 500.4050, L101.9900, L501.6710, L100.0100 #### [facility] [address] [place], [address] Hemoglobin (Bld) [Mass/Vol] 13.2 g/dL Normal 13.0-16.5 [facility] Comment on above: Performed By: #### L 500.4050, L101.9900, L501.6710, L100.0100 #### [facility] [address] [place], [address] IG% 0.000 Normal 0.0-0.9 [facility] Comment on above: Result Comment: IG% - Immature Granulocytes (promyelocytes, myelocytes and metamyelocytes) > 1% indicates that a LEFT SHIFT is Present. Performed By: #### L 500.4050, L101.9900, L501.6710, L100.0100 #### [facility] [address] [place], [address] Lymphocytes/100 WBC (Bld) 32.9 % Normal 19-41 [facility] Comment on above: Performed By: #### L 500.4050, L101.9900, L501.6710, L100.0100 #### [facility] [address] [place], [address] MCH (RBC) [Entitic mass] 28.6 pg Normal 27.0-32.0 [facility] Comment on above: Performed By: #### L 500.4050, L101.9900, L501.6710, L100.0100 #### [facility] [address] [place], [address] MCHC (RBC) [Mass/Vol] 33.1 g/dL Normal 32-[address] [facility] Comment on above: Performed By: #### L 500.4050, L101.9900, L501.6710, L100.0100 #### [facility] [address] [place], [address] MCV (RBC) [Entitic vol] 86.6 fL Normal 80-94 [facility] Comment on above: Performed By: #### L 500.4050, L101.9900, L501.6710, L100.0100 #### [facility] [address] [place], [address] Monocytes/100 WBC (Bld) 14.7 % High 0-10 [facility] Comment on above: Performed By: #### L 500.4050, L101.9900, L501.6710, L100.0100 #### [facility] [address] [place], [address] Neutrophils/100 WBC (Bld) 46.4 % Low 47-70 [facility] Comment on above: Performed By: #### L 500.4050, L101.9900, L501.6710, L100.0100 #### [facility] [address] [place], [address] Nucleated RBC (Bld) [#/Vol] 0 10*3/uL Normal 0-5 [facility] Comment on above: Performed By: #### L 500.4050, L101.9900, L501.6710, L100.0100 #### [facility] [address] [place], [address] Platelet mean volume (Bld) [Entitic vol] 11.6 fL Normal 6.2-12.0 [facility] Comment on above: Performed By: #### L 500.4050, L101.9900, L501.6710, L100.0100 #### [facility] [address] [place], [address] Platelets (Bld) [#/Vol] 201 10*3/uL Normal 150-450 [facility] Comment on above: Performed By: #### L 500.4050, L101.9900, L501.6710, L100.0100 #### [facility] [address] [place], [address] RBC (Bld) [#/Vol] 4.61 10*6/uL Normal 4.6-6.2 [facility] Comment on above: Performed By: #### L 500.4050, L101.9900, L501.6710, L100.0100 #### [facility] [address] [place], [address] RDW SD 39.8 fl Normal 35.1-43.9 [facility] Comment on above: Performed By: #### L 500.4050, L101.9900, L501.6710, L100.0100 #### [facility] [address] [place], [address] WBC (Bld) [#/Vol] 5.7 10*3/uL Normal 4.4-11.0 [facility] Comment on above: Performed By: #### L 500.4050, L101.9900, L501.6710, L100.0100 #### [facility] [address] [place], [address] CRPon 01-20-2025 C-REACTIVE PROT 7.48 mg/L High 0.0-3.0 [facility] Comment on above: Performed By: #### L 500.4050, L101.9900, L501.6710, L100.0100 #### [facility] [address] [place], [address] Carbon dioxide, total [Moles /volume] in Central venous bloodOrdered By: Che Eaton on 01-20-2025 CO2 [Moles/Vol] 24.8 mmol/L 21.0-32.0 [facility] Chloride assayOrdered By: Reese Eaton on 01-20-2025 Chloride [Moles/Vol] 103 mmol/L 98-108 [facility] Comprehensive Metabolic Prof ilon 01-20-2025 Albumin [Mass/Vol] 4.2 g/dL Normal 3.5-5.0 [facility] Comment on above: Performed By: #### L 500.4050, L101.9900, L501.6710, L100.0100 #### [facility] [address] [place], [address] Albumin/Globulin [Mass ratio] 1.2 {ratio} Normal 0.9-2.4 [facility] Comment on above: Performed By: #### L 500.4050, L101.9900, L501.6710, L100.0100 #### [facility] [address] [place], [address] ALK PHOS 86 U/L Normal 40-129 [facility] Comment on above: Performed By: #### L 500.4050, L101.9900, L501.6710, L100.0100 #### [facility] [address] [place], [address] ALT [Catalytic activity/Vol] 33 U/L Normal <=46 [facility] Comment on above: Performed By: #### L 500.4050, L101.9900, L501.6710, L100.0100 #### [facility] [address] [place], [address] AST [Catalytic activity/Vol] 30 U/L Normal <=37 [facility] Comment on above: Performed By: #### L 500.4050, L101.9900, L501.6710, L100.0100 #### [facility] [address] [place], [address] Bilirubin [Mass/Vol] 0.40 mg/dL Normal 0.00-1.30 [facility] Comment on above: Performed By: #### L 500.4050, L101.9900, L501.6710, L100.0100 #### [facility] [address] [place], [address] BUN/CRE 14.3 RATIO Normal 10-20 [facility] Comment on above: Performed By: #### L 500.4050, L101.9900, L501.6710, L100.0100 #### [facility] [address] [place], [address] Calcium [Mass/Vol] 9.7 mg/dL Normal 7.6-11.0 [facility] Comment on above: Performed By: #### L 500.4050, L101.9900, L501.6710, L100.0100 #### [facility] [address] [place], [address] Chloride [Moles/Vol] 103 mmol/L Normal 98-108 [facility] Comment on above: Performed By: #### L 500.4050, L101.9900, L501.6710, L100.0100 #### [facility] [address] [place], [address] CO2 [Moles/Vol] 24.8 mmol/L Normal 21.0-32.0 [facility] Comment on above: Performed By: #### L 500.4050, L101.9900, L501.6710, L100.0100 #### [facility] [address] [place], [address] Creatinine [Mass/Vol] 1.01 mg/dL Normal 0.70-1.[address] [facility] Comment on above: Performed By: #### L 500.4050, L101.9900, L501.6710, L100.0100 #### [facility] [address] [place], [address] GAP 12 Normal 5-15 [facility] Comment on above: Performed By: #### L 500.4050, L101.9900, L501.6710, L100.0100 #### [facility] [address] [place], [address] GFR/1.73 sq M.predicted among non-blacks MDRD (S/P/Bld) [Vol rate/Area] 107 mL/min/{1.73_m2} Normal >60 [facility] Comment on above: Result Comment: mL/m in/1.73m2 CKD-EPI Creatinine Equation (2020) Performed By: #### L 500.4050, L101.9900, L501.6710, L100.0100 #### [facility] [address] [place], [address] Globulin (S) [Mass/Vol] 3.6 g/dL Normal 2.2-4.2 [facility] Comment on above: Performed By: #### L 500.4050, L101.9900, L501.6710, L100.0100 #### [facility] [address] [place], [address] Glucose [Mass/Vol] 91 mg/dL Normal 70-99 [facility] Comment on above: Performed By: #### L 500.4050, L101.9900, L501.6710, L100.0100 #### [facility] [address] [place], [address] Potassium [Moles/Vol] 4.0 mmol/L Normal 3.3-5.[address] [facility] Comment on above: Performed By: #### L 500.4050, L101.9900, L501.6710, L100.0100 #### [facility] [address] [place], [address] Sodium [Moles/Vol] 139 mmol/L Normal 133-145 [facility] Comment on above: Performed By: #### L 500.4050, L101.9900, L501.6710, L100.0100 #### [facility] [address] [place], [address] T PROT 7.7 g/dL Normal 5.9-8.4 [facility] Comment on above: Performed By: #### L 500.4050, L101.9900, L501.6710, L100.0100 #### [facility] [address] [place], [address] Urea nitrogen [Mass/Vol] 14 mg/dL Normal 4-19 [facility] Comment on above: Performed By: #### L 500.4050, L101.9900, L501.6710, L100.0100 #### [facility] [address] [place], [address] Eosinophil percentageOrdered By: Che Eaton on 01-20-2025 Eosinophils/100 WBC (Bld) 5.5 % High 0-5 [facility] Erythrocyte Sed Rateon 01-20 SED RATE 15 mm/hr Normal 0-20 [facility] Comment on above: Performed By: #### L 500.4050, L101.9900, L501.6710, L100.0100 #### [facility] [address] [place], [place], [id number] Erythrocyte distribution wid th ratioOrdered By: Che Eaton on 01-20-2025 Erythrocyte distribution width (RBC) [Ratio] 12.8 % 11.6-14.6 [facility] Erythrocyte distribution wid th standard deviationOrdered By: Che Eaton on 01-20-2025 Erythrocyte distribution width (RBC) [Ratio] 39.8 fl 35.1-43.9 [facility] Erythrocyte sedimentation ra teOrdered By: Che Eaton on 01-20-2025 ESR (Bld) [Velocity] 15 mm/h 0-20 [facility] Glomerular filtration rate ( GFR) estimation/1.73 sq m using serum, plasma, or whole bOrdered By: Che Eaton on 01-20-2025 GFR/1.73 sq M.predicted among non-blacks MDRD (S/P/Bld) [Vol rate/Area] 107 mL/min/{1.73_m2} >60 [facility] Comment on above: mL/min/1.73m2 CKD-EP I Creatinine Equation (2020) Hematocrit Auto (Bld) [Volum e fraction]Ordered By: Che Eaton on 01-20-2025 Hematocrit (Bld) [Volume fraction] 39.9 % Low 40-54 [facility] Hemoglobin measurementOrdere d By: Che Eaton on 01-20-2025 Hemoglobin (Bld) [Mass/Vol] 13.2 g/dL 13.0-16.5 [facility] Immature granulocytes/100 WB C Auto (Bld)Ordered By: Che Eaton on 01-20-2025 Immature granulocytes/100 WBC (Bld) 0.000 % 0.0-0.9 [facility] Comment on above: IG% - Immature Granu locytes (promyelocytes, myelocytes and metamyelocytes) > 1% indicates that a LEFT SHIFT is Present. Laboratory - Chemistry and C hemistry - challengeOrdered By: Che Eaton on 01-20-2025 AST [Catalytic activity/Vol] 30 U/L <38 [facility] MCV (mean corpuscular volume ) determinationOrdered By: Che Eaton on 01-20-2025 MCV (RBC) [Entitic vol] 86.6 fL 80-94 [facility] Mean corpuscular hemoglobin (MCH) determinationOrdered By: Checrystal Eaton on 01-20-2025 MCH (RBC) [Entitic mass] 28.6 pg 27.0-32.0 [facility] Mean corpuscular hemoglobin concentration (MCHC) determinationOrdered By: Che Eaton on 01-20-2025 MCHC (RBC) [Mass/Vol] 33.1 g/dL 32-[address] [facility] Mean platelet volume determi nationOrdered By: Che Eaton on 01-20-2025 Platelet mean volume (Bld) [Entitic vol] 11.6 fL 6.2-12.0 [facility] Monocyte percentageOrdered B y: Che Eaton on 01-20-2025 Monocytes/100 WBC (Bld) 14.7 % High 0-10 [facility] Neutrophil percentageOrdered By: Che Eaton on 01-20-2025 Neutrophils/100 WBC (Bld) 46.4 % Low 47-70 [facility] Nucleated red blood cell per centageOrdered By: Che Eaton on 01-20-2025 Nucleated RBC/100 WBC (Bld) [Ratio] 0 % 0-5 [facility] Platelet countOrdered By: Reese Eaton on 01-20-2025 Platelets (Bld) [#/Vol] 201 10*3/uL 150-450 [facility] Potassium measurement (mass/ volume)Ordered By: Che Eaton on 01-20-2025 Potassium (Unsp spec) [Mass/Vol] 4.0 mmol/L 3.3-5.1 [facility] RBC Auto (Bld) [#/Vol]Ordere d By: Che Eaton on 01-20-2025 RBC (Bld) [#/Vol] 4.61 10*6/uL 4.6-6.2 [facility] Serum creatinine measurement (mass/volume)Ordered By: Che Eaton on 01-20-2025 Creatinine [Mass/Vol] 1.01 mg/dL 0.70-1.[address] [facility] Serum globulin measurementOr dered By: Che Eaton on 01-20-2025 Globulin (S) [Mass/Vol] 3.6 g/dL 2.2-4.2 [facility] Serum glucose measurement (m ass/volume)Ordered By: Che Eaton on 01-20-2025 Glucose [Mass/Vol] 91 mg/dL 70-99 [facility] Serum or plasma C reactive p rotein measurement (mass/volume)Ordered By: Che Eaton on 01-20-2025 CRP [Mass/Vol] 7.48 mg/L High 0.0-3.0 [facility] Serum or plasma alanine larios otransferase (ALT) measurementOrdered By: Che Eaton on 01-20-2025 ALT [Catalytic activity/Vol] 33 U/L <47 [facility] Serum or plasma albumin katie urement (mass/volume)Ordered By: Che Eaton on 01-20-2025 Albumin [Mass/Vol] 4.2 g/dL 3.5-5.0 [facility] Serum or plasma albumin/glob ulin mass ratioOrdered By: Che Eaton on 01-20-2025 Albumin/Globulin [Mass ratio] 1.2 {ratio} 0.9-2.4 [facility] Serum or plasma alkaline althea sphatase measurementOrdered By: Che Eaton on 01-20-2025 ALP [Catalytic activity/Vol] 86 U/L 40-129 [facility] Serum or plasma calcium katie urement (mass/volume)Ordered By: Che Eaton on 01-20-2025 Calcium [Mass/Vol] 9.7 mg/dL 7.6-11.0 [facility] Serum or plasma urea nitroge n measurement (mass/volume)Ordered By: Che Eaton on 01-20-2025 Urea nitrogen [Mass/Vol] 14 mg/dL 4-19 [facility] Sodium levelOrdered By: Redd Eaton on 01-20-2025 Sodium [Moles/Vol] 139 mmol/L 133-145 [facility] Total proteinOrdered By: Caprice Eaton on 01-20-2025 Protein [Mass/Vol] 7.7 g/dL 5.9-8.4 [facility] White blood cell (WBC) count Ordered By: Che Eaton on 01-20-2025 WBC (Bld) [#/Vol] 5.7 10*3/uL 4.4-11.0 [facility] CRPon 08-11-2024 C-REACTIVE PROT 7.52 mg/L High 0.0-3.0 [facility] Comment on above: Result Comment: C-Re active Protein (CRP) provides useful information for the diagnosis, therapy and monitoring of inflammatory processes and associated diseases. For the evaluation of Relative Risk for Cardiovascular Disease, a High Sensitivity CRP (HSCRP) should be ordered. Performed By: #### L 501.6710, L501.0900, L3400.8000, L4, L101.9900 #### [facility] [address] [place], [address] Erythrocyte Sed Rateon 08-11 SED RATE 10 mm/hr Normal 0-20 [facility] Comment on above: Performed By: #### L 501.6710, L501.0900, L3400.8000, L400, L101.9900 #### [facility] [address] [place], [address] CRPon 07-08-2024 C-REACTIVE PROT < 2.90 Normal 0.0-3.0 [facility] Comment on above: Result Comment: C-Re active Protein (CRP) provides useful information for the diagnosis, therapy and monitoring of inflammatory processes and associated diseases. For the evaluation of Relative Risk for Cardiovascular Disease, a High Sensitivity CRP (HSCRP) should be ordered. Performed By: #### L 500.4050, L101.9900, L501.6710, L100.0100 #### [facility] [address] [place], [address] Erythrocyte Sed Rateon 07-08 SED RATE 7 mm/hr Normal 0-20 [facility] Comment on above: Performed By: #### L 500.4050, L101.9900, L501.6710, L100.0100 #### [facility] [address] [place], [address] Protein+Creatinine Ratio,Uri neon 07-08-2024 PROT:CRE RATIO 75 mg/g CRE Normal 0-200 [facility] Comment on above: Performed By: #### L 500.4050, L101.9900, L501.6710, L100.0100 #### [facility] [address] [place], [address] Protein (U) [Mass/Vol] 27.2 mg/dL High <11.9 [facility] Comment on above: Performed By: #### L 500.4050, L101.9900, L501.6710, L100.0100 #### [facility] [address] [place], [address] UR CREAT 361.00 mg/dL Normal NO RANGE EST. [facility] Comment on above: Performed By: #### L 500.4050, L101.9900, L501.6710, L100.0100 #### [facility] [address] [place], [address] Urinalysis, Routine (Dipstic k)on 07-08-2024 Clarity (U) Clear Normal Clear [facility] Comment on above: Order Comment: CLEAN CATCH Performed By: #### L 500.4050, L101.9900, L501.6710, L100.0100 #### [facility] [address] [place], [address] Color (U) Yellow Normal Yellow [facility] Comment on above: Order Comment: CLEAN CATCH Performed By: #### L 500.4050, L101.9900, L501.6710, L100.0100 #### [facility] [address] [place], [address] BILIRUBIN URINE Negative Normal Negative [facility] Comment on above: Order Comment: CLEAN CATCH Performed By: #### L 500.4050, L101.9900, L501.6710, L100.0100 #### [facility] [address] [place], [address] GLUCOSE, UR Normal Normal Normal [facility] Comment on above: Order Comment: CLEAN CATCH Performed By: #### L 500.4050, L101.9900, L501.6710, L100.0100 #### [facility] [address] [place], [address] KETONE UR Negative Normal Negative [facility] Comment on above: Order Comment: CLEAN CATCH Performed By: #### L 500.4050, L101.9900, L501.6710, L100.0100 #### [facility] [address] [place], [address] LEUK ESTERASE Negative Normal Negative [facility] Comment on above: Order Comment: CLEAN CATCH Performed By: #### L 500.4050, L101.9900, L501.6710, L100.0100 #### [facility] [address] [place], [address] Nitrite Ql (U) Negative Normal Negative [facility] Comment on above: Order Comment: CLEAN CATCH Performed By: #### L 500.4050, L101.9900, L501.6710, L100.0100 #### [facility] [address] [place], [address] OCCULT BLOOD-UR Negative Normal Negative [facility] Comment on above: Order Comment: CLEAN CATCH Performed By: #### L 500.4050, L101.9900, L501.6710, L100.0100 #### [facility] [address] [place], [address] pH UR 6.0 Normal 5.0 - 8.0 [facility] Comment on above: Order Comment: CLEAN CATCH Performed By: #### L 500.4050, L101.9900, L501.6710, L100.0100 #### [facility] [address] [place], [address] PROT DIPSTX 15 mg/dl Abnormal Negative [facility] Comment on above: Order Comment: CLEAN CATCH Performed By: #### L 500.4050, L101.9900, L501.6710, L100.0100 #### [facility] [address] [place], [address] SP.GR. DIPSTX 1.030 Normal 1.002-1.030 [facility] Comment on above: Order Comment: CLEAN CATCH Performed By: #### L 500.4050, L101.9900, L501.6710, L100.0100 #### [facility] [address] [place], [address] UROBILI 1 mg/dl Abnormal Normal [facility] Comment on above: Order Comment: CLEAN CATCH Performed By: #### L 500.4050, L101.9900, L501.6710, L100.0100 #### [facility] [address] [place], [address] Quantiferon TB-Gold+on 06-25 QFT MITOGEN DANIELE > 10.00 Normal . [facility] Comment on above: Performed By: #### L 501.6710, L501.0900, L3400.8000, L400.2011, L101.9900 #### [facility] [address] [place], [address] QFT NIL VALUE 0.01 IU/mL Normal . [facility] Comment on above: Performed By: #### L 501.6710, L501.0900, L3400.8000, L400.2010, L101.9900 #### [facility] [address] [place], [address] QFT TB GOLD+ Comment Normal . [facility] Comment on above: Result Comment: Sandip tiFERON-TB Gold Plus is a qualitative indirect test for M tuberculosis infection (including disease) and is intended for use in conjunction with risk assessment, radiography, and other medical and diagnostic evaluations. The QuantiFERON-TB Gold Plus result is determined by subtracting the Nil value from either TB antigen (Ag) value. The Mitogen tube serves as a control for the test. Performed By: #### L 501.6710, L501.0900, L3400.8000, L400.2010, L101.9900 #### [facility] [address] [place], [address] QFT TB POS CRIT Negative Normal Negative [facility] Comment on above: Result Comment: No r esponse to M tuberculosis antigens detected. Infection with M tuberculosis is unlikely, but high risk individuals should be considered for additional testing (ATS/IDSA/CDC Clinical Practice Guidelines, 2017). The reference range is an Antigen minus Nil result of <0.35 IU/mL. The specimen received for QuantiFERON testing was incubated by the ordering institution. Specific procedures outlined in our Directory of Services and in the package insert for the QuantiFERON Gold (In Tube) test must be followed to enable for proper stimulation of cells for the production of interferon gamma. Chemiluminescence immunoassay methodology Performed at: [address] [id number] Middleware Systems Architect: Eric Stover PhD, Phone: [phone] Performed By: #### L 501.6710, L501.0900, L3400.8000, L4, L101.9900 #### [facility] [address] [place], [address] QFT TB1+ AG DANIELE 0.02 IU/mL Normal . [facility] Comment on above: Performed By: #### L 501.6710, L501.0900, L3400.8000, L4, L101.9900 #### [facility] [address] [place], [address] QFT TB2+ AG DANIELE 0.03 IU/mL Normal . [facility] Comment on above: Performed By: #### L 501.6710, L501.0900, L3400.8000, L4, L101.9900 #### [facility] [address] [place], [address] CRPon 06-23-2024 C-REACTIVE PROT < 2.90 Normal 0.0-3.0 [facility] Comment on above: Result Comment: C-Re active Protein (CRP) provides useful information for the diagnosis, therapy and monitoring of inflammatory processes and associated diseases. For the evaluation of Relative Risk for Cardiovascular Disease, a High Sensitivity CRP (HSCRP) should be ordered. Performed By: #### L 501.6710, L501.0900, L3400.8000, L4, L101.9900 #### [facility] [address] [place], [address] Erythrocyte Sed Rateon 06-23 SED RATE 9 mm/hr Normal 0-20 [facility] Comment on above: Performed By: #### L 501.6710, L501.0900, L3400.8000, L4, L101.9900 #### [facility] [address] [place], [address] Protein+Creatinine Ratio,Uri neon 06-23-2024 PROT:CRE RATIO 91 mg/g CRE Normal 0-200 [facility] Comment on above: Performed By: #### L 501.6710, L501.0900, L3400.8000, L400.2010, L101.9900 #### [facility] [address] [place], [address] Protein (U) [Mass/Vol] 28.0 mg/dL High <11.9 [facility] Comment on above: Performed By: #### L 501.6710, L501.0900, L3400.8000, L400.2010, L101.9900 #### [facility] [address] [place], [address] UR CREAT 308.00 mg/dL Normal NO RANGE EST. [facility] Comment on above: Performed By: #### L 501.6710, L501.0900, L3400.8000, L400.2010, L101.9900 #### [facility] [address] [place], [address] Urinalysis, Routine (Dipstic k)on 06-23-2024 BILIRUBIN URINE Negative Normal Negative [facility] Comment on above: Order Comment: CLEAN CATCH Performed By: #### L 501.6710, L501.0900, L3400.8000, L400.2010, L101.9900 #### [facility] [address] [place], [address] Clarity (U) Clear Normal Clear [facility] Comment on above: Order Comment: CLEAN CATCH Performed By: #### L 501.6710, L501.0900, L3400.8000, L400.2010, L101.9900 #### [facility] [address] [place], [address] Color (U) Yellow Normal Yellow [facility] Comment on above: Order Comment: CLEAN CATCH Performed By: #### L 501.6710, L501.0900, L3400.8000, L400.2010, L101.9900 #### [facility] [address] [place], [address] GLUCOSE, UR Normal Normal Normal [facility] Comment on above: Order Comment: CLEAN CATCH Performed By: #### L 501.6710, L501.0900, L3400.8000, L400.2010, L101.9900 #### [facility] [address] [place], [address] KETONE UR Negative Normal Negative [facility] Comment on above: Order Comment: CLEAN CATCH Performed By: #### L 501.6710, L501.0900, L3400.8000, L400.2010, L101.9900 #### [facility] [address] [place], [address] LEUK ESTERASE Negative Normal Negative [facility] Comment on above: Order Comment: CLEAN CATCH Performed By: #### L 501.6710, L501.0900, L3400.8000, L400.2010, L101.9900 #### [facility] [address] [place], [address] Nitrite Ql (U) Negative Normal Negative [facility] Comment on above: Order Comment: CLEAN CATCH Performed By: #### L 501.6710, L501.0900, L3400.8000, L400.2010, L101.9900 #### [facility] [address] [place], [address] OCCULT BLOOD-UR Negative Normal Negative [facility] Comment on above: Order Comment: CLEAN CATCH Performed By: #### L 501.6710, L501.0900, L3400.8000, L400.2010, L101.9900 #### [facility] [address] [place], [address] pH UR 6.0 Normal 5.0 - 8.0 [facility] Comment on above: Order Comment: CLEAN CATCH Performed By: #### L 501.6710, L501.0900, L3400.8000, L400.2010, L101.9900 #### [facility] [address] [place], [address] PROT DIPSTX 30 mg/dl Abnormal Negative [facility] Comment on above: Order Comment: CLEAN CATCH Performed By: #### L 501.6710, L501.0900, L3400.8000, L400.2010, L101.9900 #### [facility] [address] [place], [address] SP.GR. DIPSTX 1.025 Normal 1.002-1.030 [facility] Comment on above: Order Comment: CLEAN CATCH Performed By: #### L 501.6710, L501.0900, L3400.8000, L400.2010, L101.9900 #### [facility] [address] [place], [address] UROBILI 1 mg/dl Abnormal Normal [facility] Comment on above: Order Comment: CLEAN CATCH Performed By: #### L 501.6710, L501.0900, L3400.8000, L400.2010, L101.9900 #### [facility] [address] [place], [address] Miscellaneous Lab Procedure 2on 06-06-2024 [facility] 2 Normal [facility] Comment on above: Order Comment: CLEAN CATCH Result Comment: TEST RESULTS LIMITS Anti-C1Q Ab, IgG (RDL) A, <20 Units <20 TESTING PERFORMED AT [facility]. ORIGINAL REPORT ON FILE IN LAB CONTAINS ADDITIONAL TEST SITE INFORMATION. Performed By: #### L 501.6710, L501.0900, L3400.8000, L400, L101.9900 #### [facility] [address] [place], [address] Aldolaseon 05-26-2024 ALDOLASE 4.4 U/L Normal 3.3-10.3 [facility] Comment on above: Order Comment: CLEAN CATCH Result Comment: Perf ormed at: [facility] [id number] Middleware Systems Architect: Eric Stover PhD, Phone: [phone] Performed By: #### L 501.6710, L501.0900, L3400.8000, L4, L101.9900 #### [facility] [address] [place], [address] CCP IgG Antibodieson 024 CCP IgG Ab. 24 units High 0-19 [facility] Comment on above: Order Comment: CLEAN CATCH Result Comment: Nega tive <20 Weak positive 20 - 39 Moderate positive 40 - 59 Strong positive >59 Performed By: #### L 501.6710, L501.0900, L3400.8000, L4, L101.9900 #### [facility] [address] [place], [address] Complement C3on 05-26-2024 COMP C3 182 mg/dL High 82-167 [facility] Comment on above: Order Comment: CLEAN CATCH Performed By: #### L 501.6710, L501.0900, L3400.8000, L4, L101.9900 #### [facility] [address] [place], [address] Complement C4on 05-26-2024 COMPLEMENT, C4 32 mg/dL Normal 12-38 [facility] Comment on above: Order Comment: CLEAN CATCH Performed By: #### L 501.6710, L501.0900, L3400.8000, L400.2010, L101.9900 #### [facility] [address] [place], [address] Complement CH50on 05-26-2024 COMPLEMENT,CH50 > 60 Normal >41 [facility] Comment on above: Order Comment: Test( s) 189104-Vjyasmwtqiyw, Ql, Serum, Rflxwas developed and its performance characteristicsdetermined by [facility]. It has not been cleared or approvedby the Food and Drug Administration. Result Comment: Age Male Female 1 - 30 days Not Estab. Not Estab. 31 days - 6 months >32 >20 7 months - 17 years >39 >39 >17 years >41 >41 NOTE: The adult (>17 years) reference interval range is used to flag abnormals on this report. If the patient is 17 years old or younger, use the table above to determine out of range values. Performed By: #### L 500.4050, L101.9900, L501.6710, L100.0100 #### [facility] [address] [place], [address] Cryoglobulins, Serumon 05-26 CRYOGLOBULIN,S Comment Normal None detected [facility] Comment on above: Order Comment: CLEAN CATCH Result Comment: None Detected at 72 hours Performed By: #### L 501.6710, L501.0900, L3400.8000, L400.2010, L101.9900 #### [facility] [address] [place], [address] ANTINUCLEAR ANTIBODIES DIREC Ton 05-22-2024 CLARISSA,DIRECT Negative Normal Negative [facility] Comment on above: Result Comment: Perf ormed at: - [facility] [id number] Middleware Systems Architect: Eric Stover PhD, Phone: [phone] Performed By: #### L 500.4050, L101.9900, L501.6710, L100.0100 #### [facility] [address] [place], [address] Anti-Centromere B Abon 05-22 ANTI-CENT B AB <0.2 Normal 0.0-0.9 [facility] Comment on above: Performed By: #### L 500.4050, L101.9900, L501.6710, L100.0100 #### [facility] [address] [place], [address] Anti-Satish 05-22-2024 ANTI-HERNAN-1 <0.2 Normal 0.0-0.9 [facility] Comment on above: Performed By: #### L 500.4050, L101.9900, L501.6710, L100.0100 #### [facility] [address] [place], [address] [id number] ABon ANTISCLERODERM <0.2 Normal 0.0-0.9 [facility] Comment on above: Performed By: #### L 500.4050, L101.9900, L501.6710, L100.0100 #### [facility] [address] [place], [address] [facility] ANTI-DNA (DS)AB 1 IU/mL Normal 0-9 [facility] Comment on above: Result Comment: Nega tive <5 Equivocal 5 - 9 Positive >9 Performed By: #### L 500.4050, L101.9900, L501.6710, L100.0100 #### [facility] [address] [place], [address] Antiextractable Nug Agon INTER[employer]ATIONAL ORGANIZER Ab <0.2 Normal 0.0-0.9 [facility] Comment on above: Performed By: #### L 500.4050, L101.9900, L501.6710, L100.0100 #### [facility] [address] [place], [address] MOLINA Ab <0.2 Normal 0.0-0.9 [facility] Comment on above: Performed By: #### L 500.4050, L101.9900, L501.6710, L100.0100 #### [facility] [address] [place], [address] Miscellaneous Lab Procedureo n 0 [facility] Normal [facility] Comment on above: Order Comment: [id number] MPO SERUM [id number] MPO SERUM RMT Result Comment: TEST RESULTS LIMITS Anti-MPO Antibodies <0.2 units 0.0-0.9 TESTING PERFORMED AT [facility]. ORIGINAL REPORT ON FILE IN LAB CONTAINS ADDITIONAL TEST SITE INFORMATION. Performed By: #### L 500.4050, L101.9900, L501.6710, L100.0100 #### [facility] [address] [place], [address] Miscellaneous Lab Procedure 3on 05-22-2024 [facility] 3 Normal [facility] Comment on above: Order Comment: [id number] PR3 SERUM [id number] PR3 SERUM RMT Result Comment: TEST RESULTS LIMITS Anti-PR3 Antibodies <0.2 units 0.0-0.9 TESTING PERFORMED AT [facility]. ORIGINAL REPORT ON FILE IN LAB CONTAINS ADDITIONAL TEST SITE INFORMATION. Performed By: #### L 500.4050, L101.9900, L501.6710, L100.0100 #### [facility] [address] [place], [address] Sjogren's Antibodies A/Bon 0 - ANTI-SS-A < 0.2 Normal 0.0-0.9 [facility] Comment on above: Performed By: #### L 500.4050, L101.9900, L501.6710, L100.0100 #### [facility] [address] [place], [address] ANTI-SS-B < 0.2 Normal 0.0-0.9 [facility] Comment on above: Performed By: #### L 500.4050, L101.9900, L501.6710, L100.0100 #### [facility] [address] [place], [address] CBC W/Diff, Automatedon 09-2 Absolute Lymph 2.04 X10 3/uL Normal 0.83-4.51 [facility] Comment on above: Performed By: #### L 500.4050, L101.9900, L501.6710, L100.0100 #### [facility] [address] [place], [address] Absolute Neut 4.7 X10 3/uL Normal 2.0-7.7 [facility] Comment on above: Performed By: #### L 500.4050, L101.9900, L501.6710, L100.0100 #### [facility] [address] [place], [address] Basophils/100 WBC (Bld) 0.1 % Normal 0-1 [facility] Comment on above: Performed By: #### L 500.4050, L101.9900, L501.6710, L100.0100 #### [facility] [address] [place], [address] Eosinophils/100 WBC (Bld) 2.1 % Normal 0-5 [facility] Comment on above: Performed By: #### L 500.4050, L101.9900, L501.6710, L100.0100 #### [facility] [address] [place], [address] Erythrocyte distribution width (RBC) [Ratio] 12.3 % Normal 11.6-14.6 [facility] Comment on above: Performed By: #### L 500.4050, L101.9900, L501.6710, L100.0100 #### [facility] [address] [place], [address] Hematocrit (Bld) [Volume fraction] 38.0 % Low 40-54 [facility] Comment on above: Performed By: #### L 500.4050, L101.9900, L501.6710, L100.0100 #### [facility] [address] [place], [address] Hemoglobin (Bld) [Mass/Vol] 12.6 g/dL Low 13.0-16.5 [facility] Comment on above: Performed By: #### L 500.4050, L101.9900, L501.6710, L100.0100 #### [facility] [address] [place], [address] IG% 0.400 Normal 0.0-0.9 [facility] Comment on above: Result Comment: IG% - Immature Granulocytes (promyelocytes, myelocytes and metamyelocytes) > 1% indicates that a LEFT SHIFT is Present. Performed By: #### L 500.4050, L101.9900, L501.6710, L100.0100 #### [facility] [address] [place], [address] Lymphocytes/100 WBC (Bld) 27.0 % Normal 19-41 [facility] Comment on above: Performed By: #### L 500.4050, L101.9900, L501.6710, L100.0100 #### [facility] [address] [place], [address] MCH (RBC) [Entitic mass] 29.0 pg Normal 27.0-32.0 [facility] Comment on above: Performed By: #### L 500.4050, L101.9900, L501.6710, L100.0100 #### [facility] [address] [place], [address] MCHC (RBC) [Mass/Vol] 33.2 g/dL Normal 32-[address] [facility] Comment on above: Performed By: #### L 500.4050, L101.9900, L501.6710, L100.0100 #### [facility] [address] [place], [address] MCV (RBC) [Entitic vol] 87.6 fL Normal 80-94 [facility] Comment on above: Performed By: #### L 500.4050, L101.9900, L501.6710, L100.0100 #### [facility] [address] [place], [address] Monocytes/100 WBC (Bld) 8.6 % Normal 0-10 [facility] Comment on above: Performed By: #### L 500.4050, L101.9900, L501.6710, L100.0100 #### [facility] [address] [place], [address] Neutrophils/100 WBC (Bld) 61.8 % Normal 47-70 [facility] Comment on above: Performed By: #### L 500.4050, L101.9900, L501.6710, L100.0100 #### [facility] [address] [place], [address] Nucleated RBC (Bld) [#/Vol] 0 10*3/uL Normal 0-5 [facility] Comment on above: Performed By: #### L 500.4050, L101.9900, L501.6710, L100.0100 #### [facility] [address] [place], [address] Platelet mean volume (Bld) [Entitic vol] 10.9 fL Normal 6.2-12.0 [facility] Comment on above: Performed By: #### L 500.4050, L101.9900, L501.6710, L100.0100 #### [facility] [address] [place], [address] Platelets (Bld) [#/Vol] 270 10*3/uL Normal 150-450 [facility] Comment on above: Performed By: #### L 500.4050, L101.9900, L501.6710, L100.0100 #### [facility] [address] [place], [address] RBC (Bld) [#/Vol] 4.34 10*6/uL Low 4.6-6.2 [facility] Comment on above: Performed By: #### L 500.4050, L101.9900, L501.6710, L100.0100 #### [facility] [address] [place], [address] RDW SD 39.5 fl Normal 35.1-43.9 [facility] Comment on above: Performed By: #### L 500.4050, L101.9900, L501.6710, L100.0100 #### [facility] [address] [place], [address] WBC (Bld) [#/Vol] 7.6 10*3/uL Normal 4.4-11.0 [facility] Comment on above: Performed By: #### L 500.4050, L101.9900, L501.6710, L100.0100 #### [facility] [address] [place], [address] CPK Total, Creatine Kinaseon 05-20-2024 CPK TOTAL 76 U/L Normal 39-308 [facility] Comment on above: Performed By: #### L 500.4050, L101.9900, L501.6710, L100.0100 #### [facility] [address] [place], [address] CRPon 05-20-2024 C-REACTIVE PROT 16.20 mg/L High 0.0-3.0 [facility] Comment on above: Result Comment: C-Re active Protein (CRP) provides useful information for the diagnosis, therapy and monitoring of inflammatory processes and associated diseases. For the evaluation of Relative Risk for Cardiovascular Disease, a High Sensitivity CRP (HSCRP) should be ordered. Performed By: #### L 500.4050, L101.9900, L501.6710, L100.0100 #### [facility] [address] [place], [address] Chest PA and Lateralon 05-20 Chest PA and Lateral [facility] [address] [place] [address] Chest PA and Lateral MR#: [id number] Acct: [id number] Name: JINNY COLLINS Rep #: [id number] : 2000 M 23 From: Grant Hein MD PCP: Care Physician,No Primary Status: REG CLI Study: Chest PA and Lateral Date of Exam: 05/20/24 Exam# [id number] Ordering Dr: Che Eaton MD [id number] STUDY: X-RAY CHEST REASON FOR EXAM: Male, 23 years old. Pain. TECHNIQUE: Frontal and lateral views of the chest. COMPARISON: None. FINDINGS: The lungs are clear and expanded. There is no demonstrated pleural abnormality. Normal size heart. Normal mediastinum and barbara. Normal visualized pulmonary arteries. Normal visualized aortic arch and descending thoracic aorta. Normal visualized thoracic spine. Normal visualized ribs, clavicles, and shoulders. No abnormality of the visualized soft tissue structures of the upper abdomen. RAD/Chest PA and Lateral IMPRESSION: Normal x-ray examination of the chest. Electronically Signed: Grant Hein MD at 14:59 EDT Reading Location ID and State: [address] [place] [address] , Service support , CC: Dr. Che Eaton MD; No Primary Care Physician Tire Builder Operator: Signed Normal [facility] Comprehensive Metabolic Prof alon 05-20-2024 Albumin [Mass/Vol] 3.7 g/dL Normal 3.2-5.0 [facility] Comment on above: Performed By: #### L 500.4050, L101.9900, L501.6710, L100.0100 #### [facility] [address] [place], [place], [address] Albumin/Globulin [Mass ratio] 0.8 {ratio} Low 0.9-2.4 [facility] Comment on above: Performed By: #### L 500.4050, L101.9900, L501.6710, L100.0100 #### [facility] [address] [place], [address] ALK P 79 U/L Normal 45-117 [facility] Comment on above: Performed By: #### L 500.4050, L101.9900, L501.6710, L100.0100 #### [facility] [address] [place], [address] ALT [Catalytic activity/Vol] 35 U/L Normal 16-61 [facility] Comment on above: Performed By: #### L 500.4050, L101.9900, L501.6710, L100.0100 #### [facility] [address] [place], [address] AST [Catalytic activity/Vol] 21 U/L Normal 15-37 [facility] Comment on above: Performed By: #### L 500.4050, L101.9900, L501.6710, L100.0100 #### [facility] [address] [place], [address] Bilirubin [Mass/Vol] 0.40 mg/dL Normal 0.20-1.00 [facility] Comment on above: Result Comment: For patients on eltrombopag therapy, use of Dimension [place] TBIL is not recommended. Performed By: #### L 500.4050, L101.9900, L501.6710, L100.0100 #### [facility] [address] [place], [address] BUN/CRE 17.5 RATIO Normal 10-20 [facility] Comment on above: Performed By: #### L 500.4050, L101.9900, L501.6710, L100.0100 #### [facility] [address] [place], [address] CA,Total 9.8 mg/dL Normal 8.5-10.1 [facility] Comment on above: Performed By: #### L 500.4050, L101.9900, L501.6710, L100.0100 #### [facility] [address] [place], [address] Chloride [Moles/Vol] 107 mmol/L Normal 98-107 [facility] Comment on above: Performed By: #### L 500.4050, L101.9900, L501.6710, L100.0100 #### [facility] [address] [place], [address] CO2 [Moles/Vol] 27.0 mmol/L Normal 21.0-32.0 [facility] Comment on above: Performed By: #### L 500.4050, L101.9900, L501.6710, L100.0100 #### [facility] [address] [place], [address] Creatinine [Mass/Vol] 1.03 mg/dL Normal 0.70-1.[address] [facility] Comment on above: Result Comment: The validity of the calculated GFR GFRAA in patients over 70 years has not been determined. Clinical correlation is essential. Performed By: #### L 500.4050, L101.9900, L501.6710, L100.0100 #### [facility] [address] [place], [address] EST GFR - AA 115 mL/min Normal >60 [facility] Comment on above: Result Comment: Afri can [place] GFR Calc Performed By: #### L 500.4050, L101.9900, L501.6710, L100.0100 #### [facility] [address] [place], [address] GAP 5 Normal 5-15 [facility] Comment on above: Performed By: #### L 500.4050, L101.9900, L501.6710, L100.0100 #### [facility] [address] [place], [address] GFR/1.73 sq M.predicted among non-blacks MDRD (S/P/Bld) [Vol rate/Area] 95 mL/min/{1.73_m2} Normal >60 [facility] Comment on above: Result Comment: Non- GFR Calc Performed By: #### L 500.4050, L101.9900, L501.6710, L100.0100 #### [facility] [address] [place], [address] Globulin (S) [Mass/Vol] 4.5 g/dL High 2.2-4.2 [facility] Comment on above: Performed By: #### L 500.4050, L101.9900, L501.6710, L100.0100 #### [facility] [address] [place], [address] Glucose [Mass/Vol] 115 mg/dL High 74-106 [facility] Comment on above: Result Comment: Fast ing Glucose result from 100 to 125 mg/dL suggests IMPAIRED HOMEOSTASIS per A.D.A. criteria. Performed By: #### L 500.4050, L101.9900, L501.6710, L100.0100 #### [facility] [address] [place], [address] Potassium [Moles/Vol] 3.9 mmol/L Normal 3.5-5.[address] [facility] Comment on above: Performed By: #### L 500.4050, L101.9900, L501.6710, L100.0100 #### [facility] [address] [place], [address] Sodium [Moles/Vol] 139 mmol/L Normal 136-145 [facility] Comment on above: Performed By: #### L 500.4050, L101.9900, L501.6710, L100.0100 #### [facility] [address] [place], [address] T PROT 8.2 g/dL Normal 6.4-8.2 [facility] Comment on above: Performed By: #### L 500.4050, L101.9900, L501.6710, L100.0100 #### [facility] [address] [place], [address] Urea nitrogen [Mass/Vol] 18 mg/dL Normal 7-18 [facility] Comment on above: Performed By: #### L 500.4050, L101.9900, L501.6710, L100.0100 #### [facility] [address] [place], [address] Erythrocyte Sed Rateon 05-20 SED RATE 32 mm/hr High 0-20 [facility] Comment on above: Performed By: #### L 500.4050, L101.9900, L501.6710, L100.0100 #### [facility] [address] [place], [address] Hepatitis B Surface Antibody on 05-20-2024 HEP B Surf Ab Non-Reactive Normal [facility] Comment on above: Result Comment: Non Reactive: Inconsistent with immunity less than <10 mIU/mL Reactive: Consistent with immunity greater than or equal to 10 mIU/mL Performed By: #### L 500.4050, L101.9900, L501.6710, L100.0100 #### [facility] [address] [place], [address] Hepatitis B Surface Antigeno n 05-20-2024 HEP B Surf Ag Non-Reactive Normal Nonreactive [facility] Comment on above: Performed By: #### L 500.4050, L101.9900, L501.6710, L100.0100 #### [facility] [address] [place], [address] Hepatitis C Antibodyon 05-20 Hepatitis C AB Non-Reactive Normal Nonreactive [facility] Comment on above: Result Comment: Non Reactive: < 0.8 Equivocal: >/= 0.8 to < 1.0 Reactive: >/= 1.0 The CDC requires that a reactive/equivocal HCV antibody result be sent out for confirmation. HCV Quant by PCR testing. Performed By: #### L 500.4050, L101.9900, L501.6710, L100.0100 #### [facility] [address] [place], [address] Protein+Creatinine Ratio,Uri neon 05-20-2024 PROT:CRE RATIO 93 mg/g CRE Normal 0-200 [facility] Comment on above: Performed By: #### L 500.4050, L101.9900, L501.6710, L100.0100 #### [facility] [address] [place], [address] Protein (U) [Mass/Vol] 11.2 mg/dL Normal <11.9 [facility] Comment on above: Performed By: #### L 500.4050, L101.9900, L501.6710, L100.0100 #### [facility] [address] [place], [address] UR CREAT 121.00 mg/dL Normal NO RANGE EST. [facility] Comment on above: Performed By: #### L 500.4050, L101.9900, L501.6710, L100.0100 #### [facility] [address] [place], [address] Rheumatoid Factoron 05-20-20 24 RHEUMATOID FAC < 10.0 Normal <15 [facility] Comment on above: Performed By: #### L 500.4050, L101.9900, L501.6710, L100.0100 #### [facility] [address] [place], [address] Urinalysis, Routine (Dipstic k)on 05-20-2024 BILIRUBIN URINE Negative Normal Negative [facility] Comment on above: Order Comment: CLEAN CATCH Performed By: #### L 500.4050, L101.9900, L501.6710, L100.0100 #### [facility] [address] [place], [address] Clarity (U) Clear Normal Clear [facility] Comment on above: Order Comment: CLEAN CATCH Performed By: #### L 500.4050, L101.9900, L501.6710, L100.0100 #### [facility] [address] [place], [address] Color (U) Yellow Normal Yellow [facility] Comment on above: Order Comment: CLEAN CATCH Performed By: #### L 500.4050, L101.9900, L501.6710, L100.0100 #### [facility] [address] [place], [address] GLUCOSE, UR Normal Normal Normal [facility] Comment on above: Order Comment: CLEAN CATCH Performed By: #### L 500.4050, L101.9900, L501.6710, L100.0100 #### [facility] [address] [place], [address] KETONE UR Negative Normal Negative [facility] Comment on above: Order Comment: CLEAN CATCH Performed By: #### L 500.4050, L101.9900, L501.6710, L100.0100 #### [facility] [address] [place], [address] LEUK ESTERASE Negative Normal Negative [facility] Comment on above: Order Comment: CLEAN CATCH Performed By: #### L 500.4050, L101.9900, L501.6710, L100.0100 #### [facility] [address] [place], [address] Nitrite Ql (U) Negative Normal Negative [facility] Comment on above: Order Comment: CLEAN CATCH Performed By: #### L 500.4050, L101.9900, L501.6710, L100.0100 #### [facility] [address] [place], [address] OCCULT BLOOD-UR Negative Normal Negative [facility] Comment on above: Order Comment: CLEAN CATCH Performed By: #### L 500.4050, L101.9900, L501.6710, L100.0100 #### [facility] [address] [place], [address] pH UR 6.0 Normal 5.0 - 8.0 [facility] Comment on above: Order Comment: CLEAN CATCH Performed By: #### L 500.4050, L101.9900, L501.6710, L100.0100 #### [facility] [address] [place], [address] PROT DIPSTX Negative Normal Negative [facility] Comment on above: Order Comment: CLEAN CATCH Performed By: #### L 500.4050, L101.9900, L501.6710, L100.0100 #### [facility] [address] [place], [address] SP.GR. DIPSTX 1.015 Normal 1.002-1.030 [facility] Comment on above: Order Comment: CLEAN CATCH Performed By: #### L 500.4050, L101.9900, L501.6710, L100.0100 #### [facility] [address] [place], [address] UROBILI Normal Normal Normal [facility] Comment on above: Order Comment: CLEAN CATCH Performed By: #### L 500.4050, L101.9900, L501.6710, L100.0100 #### [facility] [address] [place], [address] CNOVon 04-19-2024 CNOV Office Visit (UCWSTR ) -- JINNY COLLINS ([id number]) 1 M Date Time Provider Department 04/19/24 2:30 PM KLARISSA ORDAZ [facility] During your visit today, we recorded the following information about you: Temperature Pulse Respiration Blood pressure 97.8 degrees 70/minute 16/minute 124/74 Weight 137 kg Klarissa Ordaz APRN.BONDING MACHINE TENDER 04/19/2024 2:55 PM Signed Triage Note: HPI Jinny Collins is a 23 year old male who presents today for CC of bilateral leg swelling and red rash. Patient states that over the week he has had increasing pain and a red rash developing in lower extremities. He is on humira fo HS BP 124/74 Pulse 70 Temp 36.6 ?C (97.8 ?F) (Tympanic) Resp 16 Wt (!) 137 kg (302 lb 0.5 oz) SpO2 98% No past medical history on file. I have confirmed and edited as necessary, the [facility] Rash is non blanching, petechial. ASSESSMENT/PLAN: 1. Petechial rash - ICD9: 782.7, ICD10: R23.3 Due to nature of patient's complaint and lack of investigative tools available at [facility], recommend patient be seen at nearest ED for further work up of rash, needing labs, concerning platelet.Patient given directions to [place] ED. Klarissa rOdaz APRN.BONDING MACHINE TENDER Allergies As of Date: 04/19/2024 (No Known Allergies) Date Reviewed: 04/19/2024 Reviewed by: Vikki Haines MA - Fully Assessed Reason for Visit: Pain [78] Cmt: Bilateral feet x 2 weeks Primary Visit Diagnosis:Petechial rash [R23.3] Problem List As Of Date: 04/19/2024 (None) Encounter Status:Closed by KLARISSA ORDAZ on 04/19/24 Normal [facility] No Panel Informationon 04-13 IMPRESSION: Normal radiographs of the right ankle/foot. RADIOLOGY CLINICAL HISTORY: Ri ght ankle and foot pain, redness swelling x1 week. No recent injury. RIGHT ANKLE 3 VIEWS: No fracture, malalignment, significant arthritis or other acute bony abnormality is seen. No radiopaque foreign body or abnormal gas bubbles are seen. RIGHT FOOT 3 VIEWS: No fracture, malalignment, significant arthritis or other acute bony abnormality is seen. No radiopaque foreign body or abnormal gas bubbles are seen. RADIOLOGY Camden Rubio MD - 04/13/2024 CLINICAL HISTORY: Right ankle and foot pain, redness swelling x1 week. No recent injury. RIGHT ANKLE 3 VIEWS: No fracture, malalignment, significant arthritis or other acute bony abnormality is seen. No radiopaque foreign body or abnormal gas bubbles are seen. RIGHT FOOT 3 VIEWS: No fracture, malalignment, significant arthritis or other acute bony abnormality is seen. No radiopaque foreign body or abnormal gas bubbles are seen. IMPRESSION IMPRESSION: Normal radiographs of the right ankle/foot. Respi [facility] No Panel InformationOrdered By: Camden Rubio on 04-13-2024 [facility] Work Phone: XR ANKLE RIGHT 3+ VIEWSon XR ANKLE RIGHT 3+ VIEWS CLINICAL HISTORY: Right ankle and foot pain, redness swelling x1 week. No recent injury. RIGHT ANKLE 3 VIEWS: No fracture, malalignment, significant arthritis or other acute bony abnormality is seen. No radiopaque foreign body or abnormal gas bubbles are seen. RIGHT FOOT 3 VIEWS: No fracture, malalignment, significant arthritis or other acute bony abnormality is seen. No radiopaque foreign body or abnormal gas bubbles are seen. IMPRESSION: Normal radiographs of the right ankle/foot. Normal [facility] XR Ankle - right 3 Viewson 0 04-13-2024 Radiology Study observation (narrative) Respi System XR FOOT RIGHT 3+ VIEWSon XR FOOT RIGHT 3+ VIEWS CLINICAL HISTORY: Right ankle and foot pain, redness swelling x1 week. No recent injury. RIGHT ANKLE 3 VIEWS: No fracture, malalignment, significant arthritis or other acute bony abnormality is seen. No radiopaque foreign body or abnormal gas bubbles are seen. RIGHT FOOT 3 VIEWS: No fracture, malalignment, significant arthritis or other acute bony abnormality is seen. No radiopaque foreign body or abnormal gas bubbles are seen. IMPRESSION: Normal radiographs of the right ankle/foot. Normal [facility] XR Foot - right 3 Viewson Radiology Study observation (narrative) [facility] CT PULMONARY ARTERIESon 12-26 CT PULMONARY ARTERIES EXAMINATION: CT PULMONARY ARTERIES HISTORY: ORDERING SYSTEM PROVIDED HISTORY: Pulmonary embolism (PE) suspected, unknown D-dimer, TECHNOLOGIST PROVIDED HISTORY: Illness/Other Reason for exam: pt complains of abscess on chest for 2 weeks Encounter Type: Initial Additional signs and symptoms: . ORDERING SYSTEM PROVIDED DIAGNOSIS CODES: COMPARISON: None TECHNIQUE: CT angiogram of the chest (per pulmonary embolus protocol) with contrast. Coronal and sagittal 3D MIP rendered images were created. ALARA Utilization: Dose reduction technique was used including one or more of the following: automated exposure control, iterative reconstruction technique, adjustment of mA and kV according patient size and/or scan done according to ALARA (exposure dose as low as reasonably achievable). FINDINGS: CTA: No pulmonary artery filling defects/emboli. Non-dilated pulmonary trunk. LUNGS: 8 mm nodule in the right upper lobe, series 301, image 47. AIRWAYS: No significant finding. PLEURA: No significant finding. MEDIASTINUM AND BARBARA: No significant finding. HEART AND PERICARDIUM: No significant finding. VESSELS: As above. CHEST WALL: Enlarged bilateral axillary lymph nodes. Skin and subcutaneous collection measuring 8.6 x 3.2 x 8.9 cm, involving the anterior chest, the level of the sternal body. Additional collection, similar appearance, measuring approximately 3.9 x 1.4 x 4.9 cm, superior to the previously described collection, at the level of the manubrium. Scattered small areas of skin and subcutaneous edema involving the mid anterior lower chest/abdomen. 1 cm skin and subcutaneous edema/small collection, anterior to the right shoulder, series 301, image 13. Mild skin and subcutaneous edema of the left anterior shoulder. Small skin and subcutaneous densities of the posterior back, largest approximately 1 x 2 cm, on series 301, image 35 NECK BASE: No significant finding. UPPER ABDOMEN: No significant finding. BONES: No significant finding. IMPRESSION: No evidence of pulmonary emboli. Multiple skin and subcutaneous collections/abscesses of the anterior chest/shoulders and back. Largest lesions involving the midline anterior chest, measuring up to 8.9 cm. Enlarged bilateral axillary lymph nodes, presumably reactive. Indeterminate 8 mm nodule in the right upper lobe. Likely infectious/inflammatory. Workstation ID: [id number] Dictated by: HANNAH FLOR on Sun January 14, 2023 9:51:07 AM EDT Transcribed by: HANNAH FLOR on SunJanuary 14, 2023 9:51:07 AM EDT Finalized by: HANNAH FLOR on SunJanuary 14, 2023 9:51:07 AM EDT [facility] Comment on above: Order Comment: Injur y/Trauma or Illness?:Illness/Other How long have you had these symptoms (acute/chronic)?:Acute Reason for exam?:pt complains of abscess on chest for 2 weeks Type of Exam?:Initial Additional signs and symptoms?:. Progress Noteon 08-29-2021 [employer] Authentication Interface Message Text Patient ID: Jinny oCllins is a 20 y.o. male. His chief complaint(s) include: ADHD Follow-up (States hasn't taken since beginning of winter break and needs refill for 7 days a week. ) Assessment 1. Attention deficit hyperactivity disorder, predominantly inattentive type 2. Anxiety Plan Jinny was seen today for adhd follow-up. Diagnoses and all orders for this visit: Attention deficit hyperactivity disorder, predominantly inattentive type - lisdexamfetamine (VYVANSE) 70 MG capsule; Take 1 Capsule (70 mg) by mouth every morning for 30 days - amphetamine-dextroamphetam ine (ADDERALL) 10 MG tablet; Take 1 Tablet (10 mg) by mouth daily for 30 days - amphetamine-dextroamphetam ine (ADDERALL) 10 MG tablet; Take 1 Tablet (10 mg) by mouth daily - amphetamine-dextroamphetam ine (ADDERALL) 10 MG tablet; Take 1 Tablet (10 mg) by mouth daily - lisdexamfetamine (VYVANSE) 70 MG capsule; Take 1 Capsule (70 mg) by mouth every morning - lisdexamfetamine (VYVANSE) 70 MG capsule; Take 1 Capsule (70 mg) by mouth every morning Anxiety - buPROPion (WELLBUTRIN XL) 150 MG XL tablet; Take 1 Tablet (150 mg) by mouth daily Return in 3 months (on 11/27/2021). So exciting Jinny has been able to start at [employer]. 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 Feels his current medication regimen is working well, will re-new for next three months. Will refill Wellbutrin. Ear canals look great today, no wax build up at all. Schedule re-check in 3 to 4 months. Subjective HPI Comments: Jinny was kind enough to bring in his 7 year old half brother who is sick today. Jinny returns to school on September 05. Took a break from his medication over the holiday, got caught up on sleep. Next semester he will be at [employer] to go for his BSN. He is unaccompanied. ADHD Follow-upThe information was obtained from the patient. Current ADHD medication(s) include Vyvanse and Adderall. Adderall Dosage: 10 mg Dosing Schedule: AM Vyvanse Dosage: 70 mg Dosing Schedule: AM Medication Use: daily. Compliance with medication: takes medication daily (takes a break on holidays). The other interventions include medications. Side effects have not included decreased appetite and delayed sleep onset. The patient is in sophomore year of college. His school performance includes: doing well and A's. Achieved goals include improved academic performance and increased independence in self-care and homework. His inattentive symptoms include: poor attention to detail, short attention span tasks/play, poor organization skills, avoiding mental effort tasks, losing things, easy distractibility and forgetfulness in daily activities. The patient has shown improvement with being attentive to details, sustaining attention in tasks, following through on instructions, finishing schoolwork, organizing tasks, not avoiding tasks that require sustained mental effort and being easily distracted. His Hyperactive-Impulsive symptoms include: fidgeting. He is negative for the following Hyperactive-Impulsive symptoms: talking excessively. The patient has shown improvement in fidgeting. The patient has not shown improvement in talking excessively. The patient is noted to be negative for arguing with adults. The patient is positive for significant functional impairment that is impairing academic achievement. His contributing co-morbidities include depression. The patient's family history is positive for family history of ADD/ADHD. The expectations for assessment include increased indep in self-care and homework and improved academic performance. Primary Care Review of Systems Objective Vital Signs 08/29/21 1420 Temp: 37.1 C (98.7 F) TempSrc: Temporal Weight: (!) 128.1 kg There is no height or weight on file to calculate BMI. Physical Exam Constitutional: He appears well. He is active. No distress. Pleasant mature 20 year old male with short dark hair. HENT: Head: Atraumatic. Ears: Right Ear: Tympanic membrane normal. Left Ear: Tympanic membrane normal. Mouth/Throat: Mucous membranes are moist. Eyes: Conjunctivae are normal. Cardiovascular: Normal rate and regular rhythm. Heart murmur not heard. Pulmonary/Chest: Breath sounds normal. There is normal air entry. Neurological: He is alert. Skin: Findings: Lesion (few swollen hydradenitis nodules on neck) present. Normal [facility] Progress Noteon 05-31-2021 [employer] Authentication Interface Message Text Patient ID: Jinny Collins is a 20 y.o. male. His chief complaint(s) include: ADHD Follow-up (no concerns) Assessment 1. Attention deficit hyperactivity disorder, combined type 2. Anxiety 3. Wax in ear 4. Acute right otitis media Plan Jinny was seen today for adhd follow-up. Diagnoses and all orders for this visit: Attention deficit hyperactivity disorder, combined type - lisdexamfetamine (VYVANSE) 70 MG capsule; Take 1 Capsule (70 mg) by mouth every morning for 30 days - lisdexamfetamine (VYVANSE) 70 MG capsule; Take 1 Capsule (70 mg) by mouth every morning - lisdexamfetamine (VYVANSE) 70 MG capsule; Take 1 Capsule (70 mg) by mouth every morning - amphetamine-dextroamphetam ine (ADDERALL) 10 MG tablet; Take 1 Tablet (10 mg) by mouth daily for 30 days - amphetamine-dextroamphetam ine (ADDERALL) 10 MG tablet; Take 1 Tablet (10 mg) by mouth daily - amphetamine-dextroamphetam ine (ADDERALL) 10 MG tablet; Take 1 Tablet (10 mg) by mouth daily Anxiety - buPROPion (WELLBUTRIN XL) 150 MG XL tablet; Take 1 Tablet (150 mg) by mouth daily Wax in ear - Ear Irrigation NSG Acute right otitis media - amoxicillin (AMOXIL) 875 MG tablet; Take 1 Tablet (875 mg) by mouth 2 times daily for 10 days Return in 3 months (on 08/31/2021). The was was removed completely with irrigation, but then his right ear drum showed erythema and consolidation through out the top half of the TM. Will try amoxicillin for this OM with presumed sinus infection as well. Jinny notes his school work is challenging, but he is working hard. He loves the clinical time. Will continue his Vyvanse 70 mg and adderall 10 mg along with the Wellbutrin XL 150 mg. His skin is showing nice improvement. Still lots of red papules and macules but smaller than before. 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 Finds it quite challenging. Already started with clinicals at [employer]. He feels the Vyvanse in the morning and the Adderall 10 mg with it in the morning. Also takes his Wellbutrin at the same time. He is unaccompanied. ADHD Follow-upThe information was obtained from the patient. Current ADHD medication(s) include Vyvanse and Adderall. Adderall Dosage: 10 mg Dosing Schedule: AM Vyvanse Dosage: 70 mg Dosing Schedule: AM Medication Use: daily and off medication on weekends (does not do every day on the weekends sometimes). Compliance with medication: takes medication daily. The other interventions include limiting distractions and medications. Side effects have included delayed sleep onset and difficulty falling asleep. Side effects have not included decreased appetite. The patient is in sophomore year of college. His school performance includes: doing well, meeting expectations and B's. Achieved goals include improved academic performance and increased independence in self-care and homework. His inattentive symptoms include: poor attention to detail, lack of follow-through and easy distractibility. The patient has shown improvement with being attentive to details, sustaining attention in tasks, listening when spoken to, finishing schoolwork, organizing tasks and not avoiding tasks that require sustained mental effort. He is negative for the following Hyperactive-Impulsive symptoms: fidgeting and talking excessively. The patient has not shown improvement in fidgeting and talking excessively. The patient is noted to be negative for arguing with adults. The patient is positive for significant functional impairment that is impairing academic achievement. The expectations for assessment include improved academic performance and increased indep in self-care and homework. Primary Care Review of Systems Objective Vital Signs 05/31/21 1308 BP: 100/50 Weight: (!) 127.6 kg Height: 176.5 cm Body mass index is 40.95 kg/m . Physical Exam Constitutional: He appears well. He is active. No distress. Pleasant forthcoming 20 year old male with dark hair. HENT: Head: Atraumatic. Ears: Right Ear: Tympanic membrane normal. There is impacted cerumen (complete obstruction with wax) in the right ear canal. Left Ear: Tympanic membrane normal. Impacted cerumen: half way obstructed with dry dark wax mcc down the canal. Mouth/Throat: Mucous membranes are moist. Eyes: Conjunctivae are normal. Cardiovascular: Normal rate and regular rhythm. Heart murmur not heard. Pulmonary/Chest: Breath sounds normal. There is normal air entry. Neurological: He is alert. Skin: Findings: Rash (dishydrotic eczema of both palms, not inflames, moderately scaling today; Diffuse hydradenitis suppurotiva) present. Normal [facility] Progress Noteon 04-05-2021 Ton Container Filler Authentication Interface Message Text Patient ID: Jinny Collins is a 20 y.o. male. His chief complaint(s) include: 20 YEAR WELL CHILD Assessment 1. Routine general medical examination at a health care facility 2. Screening examination for pulmonary tuberculosis 3. Need for vaccination Plan Jinny was seen today for 20 year well child. Diagnoses and all orders for this visit: Routine general medical examination at a health care facility - Vision Screening - PHQ9 Assessment With Score - Health Risk Assessment - CRAFFT Screening examination for pulmonary tuberculosis - PPD - place [place] Need for vaccination - Meningococcal B (BEXSERO) Return in about 1 year (around 04/05/2022) for well check. Reviewed growth chart and normal growth and development with Jinny. Jinny appears to be doing well. School forms filled out. Subjective HPI Comments: On Adderall and Vyvanse for ADHD. Takes Wellbutrin for depression. Followed by [facility]. Hx of hidradenitis suppurativa. He is unaccompanied. 20 YEAR WELL CHILD Complications after delivery: parental limits and consequences for unacceptable behavior Home: Jinny eats meals with family, has an adult to turn to for help and is permitted and able to make independent decisions. Jinny has no home risk identified. Education: Jinny is in rachna year of college and is doing well and earns A's & B's. (3rd year of college; attends [employer]; first year in nursing program, Honors [employer]). Eating: Jinny eats regular meals including fruits and vegetables, eats breakfast, limits fast food, drinks non-sweetened liquids (drinks water) and has a calcium source (drink milk, cheese). 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 Jinny engages in screen time more than 2 hours daily (Xbox). Drugs: Jinny uses alcohol (once in a while). Jinny does not use tobacco, does not use drugs and does not vape. Safety: Jinny has a violence free home (lives with mother, stepfather and 5 younger siblings), has peer relationships free from violence and uses seat belt. Jinny does not use phone/text while driving. Sex: The patient has a sexual partner. (Has a girlfriend). The patient is interested in females. The patient has had sex. Typically, the patient uses condoms as current contraceptive method. STD screening offered and declined. Suicidality: Jinny has ways to cope with stress and displays self-confidence. Jinny has no problems with sleep, has no depression and has no anxiety. PHQ-9 Score: 0 CRAFFT Assessment: Has not used alcohol or other drugs. Has not ridden in a CAR driven by someone (including self) who was high or had been using alcohol or drugs. Output Urine and Stool Pattern: Urine and Stool Pattern: Normal stool pattern, normal urine pattern. Stool Consistency: soft Sleep Sleeping Difficulty: no difficulty sleeping Hours of sleep at a time: 8 Teen Anticipatory Guidance The following anticipatory guidance was reviewed during the visit: Nutrition: limit junk food/fast food and soft drinks. Safety: home safety. Social: avoid or limit screen time and parental limits and consequences for unacceptable behavior. Health: age appropriate dental care, learn to manage time and activities, be responsible for attendance/ homework/ course selection, learn about self and strengths and recognize and deal with stress. Screenings Previous Vaccine Reactions: No. Life events information was reviewed-no referral needed Tuberculosis Concerns: Negative Tuberculosis Screen Concerns: no TB Risk Factors Hearing Vision Concerns: The caregiver has no concerns about the patient's hearing. The caregiver has no concerns about the patient's vision. Hyperlipidemia Concerns: Negative Hyperlipidemia Screen Concerns: no Hyperlipidemia Risk Factors Additional Parental Concerns: Doing well; no concerns Review of Systems All other systems reviewed and are negative. Objective Vital Signs 04/05/21 1454 BP: 102/64 Pulse: 84 Temp: 36.4 C (97.5 F) TempSrc: Temporal Weight: (!) 131.5 kg Height: 175.3 cm Body mass index is 42.81 kg/m . Physical Exam Constitutional: He appears well. He is active. No distress. HENT: Head: Atraumatic. Ears: Right Ear: Tympanic membrane and external ear normal. Left Ear: Tympanic membrane and external ear normal. Nose: Nose normal. Mouth/Throat: Mucous membranes are moist. Dentition is normal. Oropharynx is clear. Eyes: Conjunctivae and EOM are normal. No strabismus. Pupils are equal, round, and reactive to light. Neck: Neck supple. Thyroid normal. Cardiovascular: Normal rate, regular rhythm, S1 normal and S2 normal. Pulses are palpable. Heart murmur not heard. (more content not included)... Normal [facility] Progress Noteon 03-01-2021 Ton Container Filler Authentication Interface Message Text Patient ID: Jinny Collins is a 20 y.o. male. His chief complaint(s) include: ADHD Follow-up (doing well-needs refills- takes vyvanse, adderall and wellbutrin; concern for cellutitis coming back after meds ran out- asking for clindamycin) Assessment 1. Attention deficit hyperactivity disorder, predominantly inattentive type 2. Folliculitis 3. Dyshidrotic eczema 4. Anxiety Plan Jinny was seen today for adhd follow-up. Diagnoses and all orders for this visit: Attention deficit hyperactivity disorder, predominantly inattentive type - lisdexamfetamine (VYVANSE) 70 MG capsule; Take 1 Capsule (70 mg) by mouth every morning for 30 days - amphetamine-dextroamphetam ine (ADDERALL) 10 MG tablet; Take 1 Tablet (10 mg) by mouth daily for 30 days - lisdexamfetamine (VYVANSE) 70 MG capsule; Take 1 Capsule (70 mg) by mouth every morning - amphetamine-dextroamphetam ine (ADDERALL) 10 MG tablet; Take 1 Tablet (10 mg) by mouth daily - lisdexamfetamine (VYVANSE) 70 MG capsule; Take 1 Capsule (70 mg) by mouth every morning - amphetamine-dextroamphetam ine (ADDERALL) 10 MG tablet; Take 1 Tablet (10 mg) by mouth daily Folliculitis - clindamycin (CLEOCIN) 300 MG capsule; Take 1 Capsule (300 mg) by mouth every 8 hours for 10 days Dyshidrotic eczema - hydrocortisone valerate (WESTCORT) 0.2 % cream; Apply to affected area 2 times daily for 7 days Apply thin film to affected areas. Anxiety - buPROPion (WELLBUTRIN XL) 150 MG XL tablet; Take 1 Tablet (150 mg) by mouth daily Return in 3 months (on 06/01/2021). 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 He knows after he gets this he will want to get his bachelor's and maybe a practitioner role in the future, perhaps nurse gyn. His hydradenitis suppurativa is acting up and he seems to have developed a folliculitis now too. Worst on his chest and on lower abdomen/pubic area. He was on Clindamycin for 7 days from Urgent care and there was some improvement, but now it is worse again. I suggested trying Bactrim this time but he felt this did not help enough and that the clinda was doing a better job. Discussed risk of C. Diff. Stop the clindamycin if any sign of diarrhea. He will be seeing his gi tech again in two weeks. The Vyvanse 70 mg and adderall 10 mg are working well for his ADHD. The Wellbutrin 150 mg XL is working well for his depression. No side effects, but realizes he cannot take his Vyvanse after 10 am or he won't sleep that night. 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 Then plans to go for his BSN. His usual regimen is Vyvanse 70 mg in the am, Adderall 10 mg about 1 pm. Using Wellbutrin in the am. Took a break from both the Vyvanse and the Wellbutrin in the past year to see how he would do, really showed him he still needs to be on them. Had counseling in the past, none current, feels he does not need it. 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 Otherwise enjoying the summer. ADHD Follow-upThe information was obtained from the patient. Current ADHD medication(s) include Vyvanse. Vyvanse Dosage: 70 mg Dosing Schedule: Medication Use: daily. Compliance with medication: takes medication daily. The other interventions include medications. Side effects have not included decreased appetite and difficulty falling asleep (only if he takes his medications too late). The patient is in rachna year of college. His school performance includes: doing well, A's and B's. Achieved goals include improved academic performance and increased independence in self-care and homework. His inattentive symptoms include: poor attention to detail, short attention span tasks/play, lack of follow-through, avoiding mental effort tasks, easy distractibility and forgetfulness in daily activities. The patient has shown improvement with being attentive to details, sustaining attention in tasks, listening when spoken to, following through on instructions, finishing schoolwork, organizing tasks, not avoiding tasks that require sustained mental effort and being easily distracted. The patient is noted to be negative for arguing with adults. The patient is positive for significant functional impairment that is impairing academic achievement. His stressors do not include family conflict. The patient's family history is positive for anxiety/panic attacks and depression. The expectations for assessment include improved academic performance. He is unaccompanied. Primary Care Review of Systems Objective Vital Signs 03/01/21 1206 BP: 102/55 Pulse: 68 Weight: (!) 130 kg Height: 180.3 cm Body mass index is 39.97 kg/m . Physical Exam Constitutional: He appears well. He is active. No distress. HENT: Head: Atraumatic. Ears: Right Ear: Tympanic membrane normal. Left Ear: Tympanic membrane normal. Mouth/Throat: Mucous membranes are moist. Eyes: Conjunctivae ar (more content not included)... Normal [facility] Progress Noteon 01-27-2021 Ton Container Filler Authentication Interface Message Text Patient ID: Jinny Collins is a 20 y.o. male. His chief complaint(s) include: ED Follow Up (doing better; wants to discuss meds) Assessment 1. Cellulitis and abscess of buttock 2. Follow-up examination 3. Attention deficit hyperactivity disorder, combined type 4. Depression, unspecified depression type Plan Jinny was seen today for ed follow up. Diagnoses and all orders for this visit: Cellulitis and abscess of buttock - AMB Referral To Dermatology; Future Follow-up examination Attention deficit hyperactivity disorder, combined type - amphetamine-dextroamphetam ine (ADDERALL) 10 MG tablet; Take 1 Tablet (10 mg) by mouth every afternoon - lisdexamfetamine (VYVANSE) 70 MG capsule; Take 1 Capsule (70 mg) by mouth every morning for 30 days Depression, unspecified depression type - buPROPion (WELLBUTRIN XL) 150 MG XL tablet; Take 1 Tablet (150 mg) by mouth daily for 60 days Return if symptoms worsen or fail to improve. Instructed Jinny to finish off remaining doses of prescribed Clindamycin. 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 Refills for 1 month provided for Adderall and Vyvanse as Jinny needs an ADHD follow up appointment. Reminded Jinny of upcoming appointment next month. Subjective HPI Comments: Seen in office for follow up urgent care visit. Jinny reports he went to Urgent care last (01/20), however, urgent care note is dated for 01/22. Went for painful cyst/abscess to buttocks. Reported at urgent care that he had an abscess on superior aspect of buttocks area for weeks with discharge. Was sent home on oral Clindamycin and instructed to follow up with PCP. Today in office, Jinny reports he is doing better. States he had a lot of drainage from the abscess the first day after urgent care visit. After that, abscess improved with each passing day. States he no longer feels abscess; it feels flat now. Denies any pain from site. Is taking Clindamycin without issues. Has a few pills left to finish off prescribed course. Jinny is currently followed by [facility]. Hx of Hidradenitis Suppurativa and recurrent skin infections. 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 Jinny also asking for medication refills: Wellbutrin, Vyvanse and Adderall. Last seen for depression on 08/26/[address] Blanco. Wellbutrin was refilled at this time but it was discussed that Jinny would try to take a drug holiday from Wellbutrin for a few weeks this year to see if medication is still needed. Jinny states he followed recommendation but his symptoms worsened and he needed to go back on Wellbutrin. Also had his Vyvanse refilled at this visit for his ADHD. Last seen for ADHD follow up on 11/25/[address] Blanco. Refill provided for Adderall 10 mg at this time. Adderall is used as an oil inspector to his Vyvanse. He takes Adderall in the afternoon only when he needs it. Takes his Vyvanse daily. Has scheduled follow up appointment for med check on 03/01/[address] Vazquez. He is unaccompanied. Follow Up This problem is new (see narrative). The duration has been 1 week. The onset has been acute. The course is improving. The patient's symptoms have included no fever, no congestion and no sore throat. Location: buttocks. The symptoms are described as moderate. The previous interventions include antibiotics (Clindamycin). Primary Care Review of Systems Objective Vital Signs 01/27/21 1437 Weight: (!) 127 kg Height: 180.3 cm Body mass index is 39.05 kg/m . Physical Exam Constitutional: He appears well. He is active. No distress. HENT: Head: Atraumatic. Ears: Right Ear: Tympanic membrane normal. Left Ear: Tympanic membrane normal. Mouth/Throat: Mucous membranes are moist. Eyes: Conjunctivae are normal. Cardiovascular: Normal rate and regular rhythm. Heart murmur not heard. Pulmonary/Chest: Breath sounds normal. There is normal air entry. Neurological: He is alert. Skin: Mild redness to superior aspect of buttocks crease; no pustule or rash noted; small numerous pustules to trunk and chest/axilla Normal [facility] Progress Noteon 01-22-2021 Ton Container Filler Authentication Interface Message Text Patient ID: Jinny Collins is a 20 y.o. male. His chief complaint(s) include: Cyst . Assessment: 1. Cellulitis and abscess of buttock Denies red dye allergy and asked him twice I will start Clindamycin but he needs follow up over next 3-4 days ED this weekend if any fever, vomiting, chills He might need surgical packing of this abscess but also he needs to go back to dermatology Plan: Jinny was seen today for cyst. Diagnoses and all orders for this visit: Cellulitis and abscess of buttock - clindamycin (CLEOCIN) 300 MG capsule; Take 1 Capsule (300 mg) by mouth every 8 hours for 7 days Response to Therapy: Subjective: HPI Comments: H/o abscess in past and now with draining buttocks abscess Patient states he has been diagnosed with Hidradenitis Suppurativa and has recurrent skin infections Has had a abscess on superior aspect of buttocks area for weeks with discharge No fever, body aches, vomiting Has been on Bactrim and Doxycycline in past Over past couple of weeks small lesions also on chest and inguinal area He is unaccompanied. No professor of mathematics was used. Review of Systems All other systems reviewed and are negative. Objective: Physical Exam Nursing note reviewed. Constitutional: He appears well. He is active. HENT: Nose: Nose normal. Mouth/Throat: No pharynx erythema. Eyes: EOM are normal. Pupils are equal, round, and reactive to light. Right conjunctiva is not injected. Left conjunctiva is not injected. Neck: Neck supple. Cardiovascular: Regular rhythm. Heart murmur not heard. Pulmonary/Chest: Effort normal and breath sounds normal. Abdominal: Soft. He exhibits no distension and no mass. There is no hepatosplenomegaly. There is no abdominal tenderness. Musculoskeletal: No pain, swelling, or limited range of motion at any joint. Cervical back: Normal range of motion and neck supple. General: Normal range of motion. Lymphadenopathy: No right anterior and posterior cervical adenopathy present. No left anterior and posterior cervical adenopathy present. Neurological: He is alert. Skin: Findings: Rash present. Superior aspect of buttocks crease with open abscess draining clear fluid. +tender. Trunk with small numerous pustules but no discharge. Vitals reviewed: Pulse 98, temperature 36.4 C (97.6 F), temperature source Temporal, resp. rate 20, weight (!) 126.6 kg. History reviewed. No pertinent past medical history. Normal [facility] Progress Noteon 11-25-2020 Ton Container Filler Authentication Interface Message Text Patient ID: Jinny Collins is a 20 y.o. male. His chief complaint(s) include: ADHD Follow-up Assessment 1. Attention deficit hyperactivity disorder, combined type Plan Jinny was seen today for adhd follow-up. Diagnoses and all orders for this visit: Attention deficit hyperactivity disorder, combined type - amphetamine-dextroamphetam ine (ADDERALL) 10 MG tablet; Take 1 Tablet (10 mg) by mouth every afternoon Doing well overall. Follow up in 3 mo and sooner prn. Uses the adderall part of the time and it is only needed for 4-5 hour stretches. Subjective HPI Comments: Doing well in school. Eating and sleeping well. No C/O depression or anxiety. He believes medication is at an appropriate dose. ADHD Follow-up Primary Care Review of Systems Objective Vital Signs 11/25/20 1307 BP: 122/76 Temp: 36.4 C (97.5 F) TempSrc: Temporal Weight: (!) 129.9 kg Height: 177 cm Body mass index is 41.46 kg/m . Physical Exam Constitutional: He appears well. He is active. No distress. HENT: Head: Atraumatic. Mouth/Throat: Mucous membranes are moist. Cardiovascular: Normal rate and regular rhythm. Heart murmur not heard. Pulmonary/Chest: Breath sounds normal. There is normal air entry. Abdominal: Soft. He exhibits no distension. There is no abdominal tenderness. Neurological: He is alert. Normal [facility] Vital Signs Date Time Vital Sign Value Performing Clinician Facility 04-13-2025 09:50-0400 Body height 180.34 cm No Primary Care Physician [facility] 04-13-2025 09:50-0400 Body mass index (BMI) [Ratio] 39.7 kg/m2 No Primary Care Physician [facility] 04-13-2025 09:50-0400 Body temperature 98.6 [degF] No Primary Care Physician [facility] 04-13-2025 09:50-0400 Body weight 129.27 kg No Primary Care Physician [facility] 04-13-2025 09:50-0400 Diastolic blood pressure 80 mm[Hg] No Primary Care Physician [facility] 04-13-2025 09:50-0400 Heart rate 84 /min No Primary Care Physician [facility] 04-13-2025 09:50-0400 SaO2% (BldA) [Mass fraction] 98 % No Primary Care Physician [facility] 04-13-2025 09:50-0400 Systolic blood pressure 130 mm[Hg] No Primary Care Physician [facility] 04-19-2024 14:29-0400 Body temperature 97.81 [degF] Klarissa Sushma PRICE ACCURACY SUPERVISOR.BONDING MACHINE TENDER Work Phone: [facility] 04-19-2024 14:29-0400 Body weight 137 kg Klarissa Sushma PRICE ACCURACY SUPERVISOR.BONDING MACHINE TENDER Work Phone: [facility] 04-19-2024 14:29-0400 Diastolic blood pressure 74 mm[Hg] Klarissa Sushma PRICE ACCURACY SUPERVISOR.BONDING MACHINE TENDER Work Phone: [facility] 04-19-2024 14:29-0400 Heart rate 70 /min Klarissa Sushma PRICE ACCURACY SUPERVISOR.BONDING MACHINE TENDER Work Phone: [facility] 04-19-2024 14:29-0400 Respiratory rate 16 /min Klarissa Sushma PRICE ACCURACY SUPERVISOR.BONDING MACHINE TENDER Work Phone: [facility] 04-19-2024 14:29-0400 SaO2% (BldA) [Mass fraction] 98 % Klarissa Sushma PRICE ACCURACY SUPERVISOR.BONDING MACHINE TENDER Work Phone: [facility] 04-19-2024 14:29-0400 Systolic blood pressure 124 mm[Hg] Klarissa Sushma PRICE ACCURACY SUPERVISOR.BONDING MACHINE TENDER Work Phone: [facility] 04-13-2024 16:04-0400 Diastolic blood pressure 79 mm[Hg] Mariano Madison MD [facility] 04-13-2024 16:04-0400 Heart rate 78 /min Mariano Madison MD [facility] 04-13-2024 16:04-0400 Respiratory rate 18 /min Mariano Madison MD [facility] 04-13-2024 16:04-0400 SaO2% (BldA) [Mass fraction] 97 % Mariano Madison MD [facility] 04-13-2024 16:04-0400 Systolic blood pressure 155 mm[Hg] Mariano Madison MD [facility] 04-13-2024 14:38-0400 Body height 177.8 cm Mariano Madison MD [facility] 04-13-2024 14:38-0400 Body mass index (BMI) [Ratio] 34.44 kg/m2 Mariano Madison MD [facility] 04-13-2024 14:38-0400 Body temperature 97.59 [degF] Mariano Madison MD [facility] 04-13-2024 14:38-0400 Body weight 108.86 kg Mariano Madison MD [facility] Encounters Encounter Date Encounter Type Care Provider Facility Start: 04-13-2025 End: 04-13-2025 ambulatory No Primary Care Physician [facility] Start: 04-13-2025 End: 04-13-2025 Patient encounter procedure Abilio Chairez [facility] Work Phone: Start: 04-13-2025 End: 04-13-2025 ambulatory No Primary Care Physician Facility:[facility] Start: 02-19-2025 End: 02-19-2025 ambulatory No Primary Care Physician -[facility] Start: 02-19-2025 End: 02-19-[address] Olegario Ramesh MD -[facility] Work Phone: Start: 02-19-2025 End: 02-19-2025 ambulatory No Primary Care Physician Facility:[facility] Start: 01-20-2025 End: 01-20-2025 ambulatory No Primary Care Physician [facility] Work Phone: Start: 01-20-2025 End: 01-20-[address] Che Eaton MD -[facility] [place] Work Phone: Start: 01-20-2025 End: 01-20-2025 ambulatory No Primary Care Physician Facility:[facility] Start: 08-11-2024 End: 08-11-2024 ambulatory No Primary Care Physician Facility:[facility] Start: 07-08-2024 End: 07-08-2024 ambulatory No Primary Care Physician Facility:[facility] Start: 06-23-2024 End: 06-23-2024 ambulatory Che Eaton Facility:[facility] Start: 05-20-2024 End: 05-20-2024 ambulatory No Primary Care Physician Facility:[facility] Start: 04-19-2024 ambulatory KLARISSA ORDAZ Facility:[facility] Start: 04-19-2024 End: 04-19-2024 Patient encounter procedure Klarissa Ordaz APRN.BONDING MACHINE TENDER Work Phone: [facility] Comment on above: Petechial rash (Prim regi Dx) Start: 04-13-2024 End: 04-13-2024 Emergency department patient visit MARIANO Hall [facility] Emergency Department Start: 07-09-2023 End: 07-09-2023 Emergency department patient visit PHYSICIAN NO [facility] Start: 01-14-2023 End: 01-14-2023 Emergency department patient visit PHYSICIAN NO [facility] Procedures Date Procedure Procedure Detail Performing Clinician Start: 02-19-2025 In-vitro immunologic test No Primary Car e Physician Comment on above: QuantiFERON-TB Gold Plus is a qualitativ e indirect test forM tuberculosis infection (including disease) and isintended for use in conjunction with risk assessment,radiography, and other medical and diagnostic evaluations.The QuantiFERON-TB Gold Plus result is determined bysubtracting the Nil value from either TB antigen (Ag)value. The Mitogen tube serves as a control for the test. No response to M tub erculosis antigens detected.Infection with M tuberculosis is unlikely, but high riskindividuals should be considered for additional testing(ATS/IDSA/CDC Clinical Practice Guidelines, 2017). Thereference range is an Antigen minus Nil result of <0.35IU/mL.The specimen received for QuantiFERON testing was incubatedby the ordering institution. Specific procedures outlinedin our Directory of Services and in the package insert forthe QuantiFERON Gold (In Tube) test must be followed toenable for proper stimulation of cells for the productionof interferon gamma. Chemiluminescence immunoassaymethodologyPerformed at: [employer] [id number] Director: Eric Stover PhD, Phone: [phone] Start: 04-13-2024 End: 04-13-2024 Radex ankle complete minimum 3 views Jackie CAMACHO Work Phone: Plan of Treatment Date Care Activity Detail Author Start: 02-19-2025 In-vitro immunologic test [facility] Start: 04-27-2024 Influenza vaccination INFLUENZA VACCINE (#1) [facility] Start: 04-27-2023 COVID-19 VACCINE ( season) COVID-19 VACCINE () [facility] Start: 03-27-2023 Tetanus vaccination TETANUS [facility] Start: 03-27-2023 Urine microalbumin profile DTaP,Tdap,Td Vaccine (5 - Td or Tdap) [facility] Start: 2018 Anxiety Screening Anxiety Screening [facility] Start: 2018 Depression Screening Depression Screening [facility] Start: 2018 Hepatitis C screening Hepatitis C Screening [facility] Start: 2018 HIV screening HIV Screening [facility] Start: 2015 HIV screening HIV SCREENING DISCUSSION [facility] Start: 2014 Peds To Adult Transition Annual Assessment Peds To Adult Transition Annual Assessment [facility] Start: 2012 Peds To Adult Transition Initial Discussion Peds To Adult Transition Initial Discussion [facility] Start: 2000 Hepatitis C screening HEPATITIS C VIRUS SCREENING [facility] Alanine aminotransfe rase [Enzymatic activity/volume] in Serum or Plasma [facility] Albumin [Mass/volume ] in Serum or Plasma [facility] Alkaline phosphatase [Enzymatic activity/volume] in Serum or Plasma [facility] Anion gap in Serum or Plasma [facility] Bilirubin, total measurement [facility] BUN/Creatinine ratio [facility] C reactive protein [Mass/volume] in Serum or Plasma [facility] Calcium [Mass/volume ] in Serum or Plasma [facility] Carbon dioxide, tota l [Moles/volume] in Central venous blood [facility] Creatinine [Mass/vol ume] in Serum or Plasma [facility] Erythrocyte mean cor puscular volume determination [facility] Erythrocyte sediment ation rate [facility] Glucose [Mass/volume ] in Serum or Plasma [facility] Hematocrit [Volume F raction] of Blood [facility] Hemoglobin [Mass/vol ume] in Blood [facility] Leukocytes [#/volume ] in Blood [facility] Mean corpuscular hem oglobin concentration determination [facility] Mean corpuscular hem oglobin determination [facility] Measurement of renal function [facility] Mycobacterium tuberc ulosis tuberculin stimulated gamma interferon [Presence] in Blood [facility] Neutrophil count [facility] Neutrophil percent differential count [facility] Platelets [#/volume] in Blood [facility] Potassium measurement [facility] Red blood cell count [facility] Red cell distributio n width determination [facility] Serum chloride measurement [facility] Sodium measurement [facility] Total protein measurement [facility] Urea nitrogen [Mass/ volume] in Serum or Plasma [facility] Immunizations Immunization Date Immunization Notes Care Provider Fa cility 05-22-2021 influenza virus vacc ine, unspecified formulation Mariano Madison MD [facility] Payers Date Payer Category Payer Self-pay 2024 Unknown [employer] PPO [id number] 2024-Present [phone] [address] [place] [address] PPO [id number] 2022 Unknown [id number] 2000 Unknown [id number] 2000 Unknown [id number] 1982 Unknown [id number] Medicaid [id number] Unknown [id number] Unknown [id number] Unknown [id number] Unknown [id number] Unknown [id number] Unknown [id number] Unknown [id number] Unknown [id number] Social History Date Type Detail Facility Start: 04-22-2018 Tobacco smoking stat us [facility]IS Never smoked tobacco [facility] Start: 04-22-2018 Tobacco use and exposure Smokeless tobacco non-user [facility] Start: 04-13-2024 Alcoholic beverage intake Current drinker of alcohol (finding) [facility] Start: 04-23-2019 History of Social function [facility] Start: 04-23-2019 Tobacco use panel [facility] Start: 04-13-2024 Alcohol Comment occ [facility] Start: 2000 Sex assigned at Not on file [facility] [employer] [facility] Start: 04-22-2018 Gender identity Identifies as male gender (finding) [facility] Start: 04-19-2024 [facility] daily (finding) [facility] Start: 2000 Sex Assigned At Male [facility] Clinical Notes 04-13-2024 to 04-13-2025 Note Date & Type Note Facility 04-13-2025 Progress note [facility] 04-13-2025 Progress note Note Date/Time April 13, 2025 10:42am [facility] [address], [address] [place] [address] OFFICE VISIT Date of Service: 04/13/25 MR#: [id number] Acct: [id number] Name: JINNY COLLINS Rep # : [id number] : 2000 Provider: REESE Arias Age/Sex: 24/M Location: [facility] Status: Signed with Addenda ADDENDUM by REESE Arias on 04/13/25 at 1042 HPI Details: REVISED DX: Acute pharyngitis J02.9 Assessment and Plan Assessment and Plan Orders: Orders POC Miranda Rapid Strep A Today J02.9 - Acute pharyngitis, unspecified 04/13/25 1042 <Electronically signed by Abilio KOHLI> Date _ Abilio Chairez cc: ~* Signed Intake Vital Signs 04/19/24 15:06 04/13/25 09:50 Height 5 ft 11 in 5 ft 11 in Weight: 285 lb BMI 39.7 BP 130/80 H Blood Pressure Location Lt brachial Position Sitting Pulse 84 Pulse Source Monitor Temp 98.6 F Temp Source Oral Pulse Oximetry (%) 98 Oxygen Delivery Method room air Intake Visit Reasons: SORE THROAT Chief Complaint: Sore Throat Accompanied by: Self Allergies No Known Allergies Allergy (Verified 04/13/25 09:48) Medications ?Medication ?Instructions ?Recorded ?Confirmed ?Type bimekizumab-bkzx 160 mg/mL 160 mg subcut Q4W 04/13/25 04/13/25 History subcutaneous syringe (Bimzelx) doxycycline hyclate 150 mg tablet 150 mg PO BID 04/13/25 History Nurse's Note: Sore throat, hard to swallow, left tonsil feels very swollen. X 2 days. [facility] Medical History (Updated 04/19/24 @ 15:19 by Victoria Marshall) Hydradenitis Asthma Social History Smoking Status: Current every day smoker tobacco type: smokeless tobacco HPI HPI Chief Complaint: Sore Throat Details: JINNY COLLINS, is a 24 M who presents to the office today for [facility] for approximately 2-day history of progressively worsening sore throat with swollen tender cervical lymph nodes in front of neck (L>R), no cough, no fever. Painful swallowing appreciated though no difficulty swallowing/drooling. No rash. No complaints of chest pressure/shortness of breath/dyspnea on exertion. 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 ?No uksx-ovd-nxhqhss products taken to assist. No other associated symptoms and no other alleviating/aggravating factors. ROS Const Constitutional: No other (As above) Exam Const General: cooperative, healthy appearing and no acute distress Orientation: alert, awake and oriented x3 HENMT Head: normal to inspection Ears: hearing grossly normal bilaterally, external ears normal, TM's normal bilaterally and EAC's normal Nose: external nose normal, nares normal, septum normal and no nasal discharge Face and sinus: normal facial exam, sinuses nontender and face symmetric Mouth: oral mucosae normal, lip normal, tongue normal and oropharynx normal Throat: posterior oropharynx normal, uvula midline, abnormal tonsil bilaterallyerythema w/ exudates and +1 hypertrophy, and no postnasal drainage Eyes General: appearance normal, both eyes and all related structures Neck Neck: normal visual inspection, full ROM, no meningeal signs, supple and lymphadenopathy (Bilateral anterior cervical lymph node swelling/nontender to palpation) Neck mass: No Thyroid: thyroid normal Chest Chest palpation & inspection: normal inspection of the chest Resp Effort & Inspection: normal respiratory effort and able to speak in complete sentences Auscultation: Bilateral: Clear to Auscultation Cardio Palpation: normal PMI Rate: regular rate Rhythm: regular rhythm Heart Sounds: S1 normal, S2 normal, no gallops, no murmurs and no rubs Pulses: radial pulses present Skin General: no rashes or lesions noted Neuro General: patient alert, patient awake and patient oriented x3 Cognition: normal cognition Speech: speech normal Psych Appearance: grossly normal Mental Status: mental status grossly normal Mood: congruent mood Affect: normal affect Speech and Movement: speech and movement normal Attitude: cooperative Diagnoses Acute streptococcal pharyngitis J02.0 Assessment and Plan Assessment and Plan (1) Acute streptococcal pharyngitis: Status: Acute Plan: See POC results for streptococcal pharyngitis and Monospot test (both negative). Supportive measures as instructed today. Work excuse offered/declined. Follow-up with PCP in 5-7 days should symptoms not improve, ED sooner should symptoms worsen or any other concerns develop. Patient states acknowledging understanding all the above. Results POC Miranda Rapid Strep POC Miranda Rapid Strep Negative Last Edit by Liseth Rdz MA on 04/13/25 10: 11 Coding Level of Care Code Off vis,new,level 2 Assessment and Plan Assessment and Plan Orders: Orders POC Miranda Rapid Strep A Today J02.9 - Acute pharyngitis, unspecified 04/13/25 1041 <Electronically signed by Abilio KOHLI> Date _ Abilio KOHLI Cosigner Signature: Date (if applicable) CC: ~ [place] [employer] Work Phone: 1(363) 360-168008-24-2024 NoteHNO ID: [id number] Author: KLARISSA ORDAZ APRN.BONDING MACHINE TENDER Service: ? Author Type: Nurse Practitioner Type: Progress Notes Filed: 04/19/2024 14:55 Note Text: Triage Note: [facility] Jinny Collins is a 23 year old male who presents today for CC of bilateral leg swelling and red rash. Patient states that over the week he has had increasing pain and a red rash developing in lower extremities. He is on humira fo HS BP 124/74 Pulse 70 Temp 36.6 ?C (97.8 ?F) (Tympanic) Resp 16 Wt (!) 137 kg (302 lb 0.5 oz) SpO2 98% No past medical history on file. I have confirmed and edited as necessary, the [facility] Rash is non blanching, petechial. ASSESSMENT/PLAN: 1. Petechial rash - ICD9: 782.7, ICD10: R23.3 Due to nature of patient's complaint and lack of investigative tools available at [facility], recommend patient be seen at nearest ED for further work up of rash, needing labs, concerning platelet.Patient given directions to [facility]. Klarissa Ordaz APRN.CNPZ[facility]-24-[facility] History of Present illness Narrative* Klarissa Ordaz APRN.BONDING MACHINE TENDER - 04/19/2024 2:42 PM EDT Triage Note: HPI Jinny Collins is a 23 year old male who presents today for CC of bilateral leg swelling and red rash. Patient states that over the week he has had increasing pain and a red rash developing in lower extremities. He is on humira fo HS BP 124/74 Pulse 70 Temp 36.6 C (97.8 F) (Tympanic) Resp 16 Wt (!) 137 kg (302 lb 0.5 oz) SpO2 98% No past medical history on file. I have confirmed and edited as necessary, the [facility] Rash is non blanching, petechial. ASSESSMENT/PLAN: 1. Petechial rash - ICD9: 782.7, ICD10: R23.3 Due to nature of patient's complaint and lack of investigative tools available at [facility], recommend patient be seen at nearest ED for further work up of rash, needing labs, concerning platelet.Patient given directions to [facility]. Klarissa Ordaz APRN.BONDING MACHINE TENDER documented in [facility] encounter[facility] Emergency department Note * Lavern Rhodes RN - 04/13/2024 4:41 PM EDT Discharge instructions reviewed with patient. Patient educated on where to picker tender prescription medication(s), pain management, and follow up. Patient verbalized understanding. No further questions at this time. Patient declined assistance to vehicle. Patient ambulated out of ER with steady gait and in stable condition. [facility]08-18-2024 Emergency department Note* Lavern Rhodes RN - 04/13/2024 4:41 PM EDT Discharge instructions reviewed with patient. Patient educated on where to picker tender prescription medication(s), pain management, and follow up. Patient verbalized understanding. No further questions at this time. Patient declined assistance to vehicle. Patient ambulated out of ER with steady gait and in stable condition. * Lavern Rhodes RN - 04/13/2024 4:12 PM EDT LAURY wrap applied at this time. Patient educated on LAURY wrap application and removal. Patient verbalized understanding. No further questions at this time * Lavern Rhodes RN - 04/13/2024 2:57 PM EDT Xray antonioside documented in this encounterSelect [facility] Emergency department Note* Lavern Rhodes RN - 04/13/2024 4:12 PM EDT LAURY wrap applied at this time. Patient educated on LAURY wrap application and removal. Patient verbalized understanding. No further questions at this time [facility]08-18-2024 Emergency department Note* Lavern Rhodes RN - 04/13/2024 2:57 PM EDT Xray cartside [facility]* Diagnosis Right ankle swelling- Primary Effusion of ankle and foot joint Sprain of right ankle, unspecified ligament, initial encounter Right foot pain Pain in limb documented in this encounter [facility]* Diagnosis Petechial rash- Primary Spontaneous ecchymoses documented in this encounter [facility] noteNo assessment information availableWGreen Cross Hospital Work Phone: Hospital Discharge instructions* Attachments The following attachments cannot be sent through Care Everywhere. * Foot Pain ([place] Citizen) * Ankle Sprain ([place] Citizen) * RICE: General Info ([place] Citizen) * Ankle Sprain: Rehab Exercises ([place] Citizen) documented in this encounterSelect [facility] HospitalReason for referral (narrative)* Consultation (Routine) - New Request Specialty Diagnoses / Procedures Referred By [place] Referred To Contact Orthopaedics Diagnoses Sprain of right ankle, unspecified ligament, initial encounter Right foot pain Daquan Fernandez, [employer] [address] [place] [address] Ramon Jo MD [address] [place] [id number] Referral ID Status Reason Start Date Expiration Date V isits Requested Visits Authorized [id number] New Request 04/13/2024 05/08/2025 1 1 [facility]Reason for referral (narrative)No reason for referral information availableWGreen Cross Hospital Work Phone: Summary Purpose Family History No Family History Records FoundNo Family History Records FoundNo Family History Records FoundNo Family History Records FoundNo Family History Records Found Advance Directives No Advanced Directives Records FoundNo Advanced Directives Records FoundNo Advanced Directives Records FoundNo Advanced Directives Records FoundNo Advanced Directives Records Found Chief Complaint and Reason for Visit Chief Complaint Admit Date Pain January 20, 2025 9:26a m Chief Complaint Admit Date Pain January 20, 2025 9:26a m PAIN- COPY PCP April 13, 2025 9: 15am SORE THROAT April 13, 2025 9: 46am Additional Source Comments (unrecognized sect ion and content) No Status Records FoundNo Status Records FoundNo Status Records FoundNo Status Records FoundNo Status Records Found INFORMATION SOURCE (unrecogn ized section and content) DATE CREATED AUTHOR 08/30/2021 [facility] DATE CREATED AUTHOR AUTHOR'S ORGANIZ ATION 07/16/2023 [facility] DATE CREATED AUTHOR AUTHOR'S ORGANIZ ATION 04/21/2024 [facility] DATE CREATED AUTHOR AUTHOR'S ORGANIZ ATION 06/19/2024 [facility] DATE CREATED AUTHOR AUTHOR'S ORGANIZ ATION 04/26/2025 [facility] Reason for Visit (unrecogniz ed section and content) Reason Comments Ankle swelling Pt c/o right ankle s welling ,pain with movement and rash. Pt states rash of red dot started last week after contact with ant spray. Pt seen at urgent care and given steroid for rash. Pt states rash went away but now having painful bending and movement in right ankle area. Pt rates pain 0/10 at rest and 8/10 with activity. Reason Comments Pain Bilateral feet x 2 w eeks Scheduled Active and Recently Administ ered Medications (unrecognized section and content) Medication Order 04/11/2024 04/12/2024 04/13/2024 Acetaminophen (TYLENOL) tablet 975 mg (COMPLETED) 975 mg, Oral, ONCE, 1 dose, On 04/13/24 at 1515 1452 (Given - Provid er: Lavern Rhodes RN) Ibuprofen (MOTRIN) tablet 800 mg (COMPLETED) 800 mg, Oral, ONCE, 1 dose, On 04/13/24 at 1515, Give with food 1452 (Given - Provid er: Lavern Rhodes RN) Care Teams (unrecognized sec tion and content) New Account Interviewer Relationship Specialty Start Date End Date Mariano Madison MD PCP - General Pediatrics 04/22/18 Team Status: Active Member Role Status Dates No Primary Care Physician Primary Care Provider Active Team Status: Inactive Member Role Status Dates No Primary Care Physician Primary Care Provider Active Start: January 20, 2025 End: January 20, 2025 Dr. Che Eaton MD Attending Provider Active Start: January 20, 2025 End: January 20, 2025 Dr. Che Eaton MD Referring Provider Active Start: January 20, 2025 End: January 20, 2025 Team Status: Active Member Role/Relationship Status Dates No Primary Care Physician Primary Care Provider Active Team Status: Inactive Member Role/Relationship Status Dates No Primary Care Physician Primary Care Provider Active Start: January 20, 2025 End: January 20, 2025 Dr. Che Eaton MD Attending Provider Active Start: January 20, 2025 End: January 20, 2025 Dr. Che Eaton MD Referring Provider Active Start: January 20, 2025 End: January 20, 2025 Team Status: Inactive Member Role/Relationship Status Dates No Primary Care Physician Primary Care Provider Active Start: February 19, 2025 End: February 19, 2025 Dr. Olegario Ramesh MD Attending Provider Active Start: February 19, 2025 End: February 19, 2025 Dr. Olegario Ramesh MD Referring Provider Active Start: February 19, 2025 End: February 19, 2025 Team Status: Active Member Role/Relationship Status Dates No Primary Care Physician Primary Care Provider Active Start: April 13, 2025 Dr. Che Eaton MD Attending Provider Active Start: April 13, 2025 Dr. Che Eaton MD Referring Provider Active Start: April 13, 2025 Team Status: Inactive Member Role/Relationship Status Dates No Primary Care Physician Primary Care Provider Active Start: April 13, 2025 End: April 13, 2025 No Primary Care Physician Referring Provider Active Start: April 13, 2025 End: April 13, 2025 Abilio KOHLI PA Attending Provider Active Start: April 13, 2025 End: April 13, 2025 Team Status: Inactive Member Role/Relationship Status Dates No Primary Care Physician Primary Care Provider Active Start: April 13, 2025 End: April 13, 2025 Dr. Che Eaton MD Attending Provider Active Start: April 13, 2025 End: April 13, 2025 Dr. Che Eaton MD Referring Provider Active Start: April 13, 2025 End: April 13, 2025 Source Comments (unrecognize d section and content) In the event this informatio n is protected by the Federal Confidentiality of Alcohol and Drug Abuse Patient Records regulations: The Federal rules restrict any use of the information to criminally investigate or prosecute any alcohol or drug abuse patient.[facility] Goals (unrecognized section and content) Goals may be documented in a n alternate sectionGoals may be documented in an alternate sectionGoals may be documented in an alternate sectionGoals may be documented in an alternate section FOR RECORDS PERTAINING TO PATIENTS WHO ARE OR HAVE BEEN ENROLLED IN A CHEMICAL DEPENDENCY/SUBSTANCEABUSE PROGRAM, SOME INFORMATION MAY BE OMITTED. This clinical summary was aggregated from multiple sources. Caution should be exercised in using it in the provision of clinical care. This summary normalizes information from multiple sources, and as a consequence, information in this document may materially change the coding, format and clinical context of patient data. In addition, data may be omitted in some cases. CLINICAL DECISIONS SHOULD BE BASED ON THE PRIMARY CLINICAL RECORDS. [facility] [employer] [facility]. provides no warranty or guarantee of the accuracy or completeness of information in this document.
== END | disposition home or self-care (01) ==
LOC: MTLAB 13:47
PROVIDERS: Referring Provider Internal Medicine Rheumatology; Visit Provider Internal Medicine Rheumatology
DX: M31.0 Hypersensitivity angiitis (principal); Z79.899 Other long term (current) drug therapy
CPT/HCPCS: 36415; 80053; 85025; 85652; 86140